=== PATIENT | female | born 1965 | race Caucasian/White ===

== ENCOUNTER 2024-05-15 21:02 | Inpatient (IN) | payer BC, SELFPAY ==
[2024-05-15 14:14] VITALS: BP 187/99
[2024-05-15 14:43] LABS: % Basophils 0.3 % (0-2); % Eosinophils 0.3 % (0-6); % Immature Granulocytes 0.6 % (0-0.5); % Lymphocytes 9.1 % (20.5-51.1); % Monocytes 5.5 % (1.7-9.3); % Neutrophils 84.2 % (42.2-75.2); Absolute Basophils 0.1 10^3/uL (0-0.2); Absolute Immature Granulocytes 0.1 10^3/uL (0-0.05); Absolute Lymphocytes 1.4 10^3/uL (1.2-3.4); Absolute Monocytes 0.9 10^3/uL (0.1-0.6); Absolute Neutrophils 12.9 10^3/uL (1.4-6.5); Hematocrit 40.7 % (37.0-47.0); Hemoglobin 13.8 g/dL (12.0-16.0); Mean Corp Hgb Conc. 33.9 g/dL (33.0-37.0); Mean Corpuscular Volume 79.5 fL (81.0-99.0); Mean Platelet Volume 9.4 fL (7.4-10.4); Nucleated Red Blood Cells % 0 %; Platelet Count 206 10^3/uL (130-400); Red Blood Cell Count 5.12 10^6/uL (4.20-5.40); Red Cell Dist. Width 13.7 % (11.5-14.5); White Blood Cell Count 15.3 10^3/uL (4.8-10.8)
[2024-05-15 14:50] LABS: ALT (SGPT) 36 U/L (0-35); AST (SGOT) 30 U/L (14-36); Albumin 4.4 g/dl (3.5-5.0); Alkaline Phosphatase 136 U/L (38-126); Blood Urea Nitrogen 13 mg/dl (7-17); Calcium 9.9 mg/dl (8.4-10.2); Carbon Dioxide 27 mmol/L (22-30); Chloride 97 mmol/L (98-107); Glucose 239 mg/dl (70-99); Potassium 4.4 mmol/L (3.5-5.1); Sodium 136 mmol/L (135-145); Total Bilirubin 2.9 mg/dl (0.2-1.3); Total Protein 7.6 g/dl (6.3-8.2); eGFR > 60.00
--- NOTE | 2024-05-15 16:33 | EDRN ---
Louie OSUNA in room w/pt at this time.
[2024-05-15 16:45] VITALS: BMI 40.5
--- NOTE | 2024-05-15 16:45 | ED.GENMED ---
History of Present Illness
General
Chief Complaint: Abdominal Pain
Source: patient
Time Seen by Provider: 05/15/24 16:23
History of Present Illness
History of Present Illness:
58yoF with a history of obesity, GERD, IBS, and kidney stones presenting for evaluation of abdominal pain. Symptoms initially started with diarrhea 2 days ago. She then developed pain throughout her lower abdomen. She initially thought her symptoms
may be related to food poisoning as she had takeout prior to her symptoms starting. Her diarrhea has resolved but she continues to have abdominal pain. Pain is worse with movement and improves with ibuprofen. She also reports nausea and belching.
She reports a subjective fever 2 days ago but none since. She denies any vomiting or urinary symptoms. Previous abdominal surgeries include a section x2. She has never had a colonoscopy before.
Phy Exam
General Physical Exam
General Presentation: well appearing and no apparent distress
General age: appears stated age
General Skin: warm and dry
General Habitus: normal
ENT Exam
ENT Exam: normocephalic
Cardiovascular Exam
Cardiovascular Exam: regular rate/rhythm and no murmur
Pulmonary Exam
Pulmonary Exam: lungs clear, no respiratory distress, no crackles and no wheezing
Gastrointestinal Exam
Gastrointestinal Exam: soft, non distended, tender and other (Abdomen obese. +Tenderness throughout lower abdomen. No rebound or guarding.)
Neurological Exam
Neurological Exam: alert
Velasquez Coma Scale
Eye Opening: Spontaneous
Verbal Response: Oriented
Motor Response: Obeys Commands
GCS Total Score: 15
Skin Exam
Skin Exam: normal color and warm/dry
Psychiatric Exam
Psychiatric Exam: normal mood/affect
Course
Orders/Labs/Results
Orders:
Orders
05/15/24 Breakfast
NPO
Allow oral meds: Yes
Allow clear liquids: Sips of Clears
NPO with Ice Chips: Yes
05/15/24 14:24
CMP [Comprehensive Metabolic Panel] Urgent
Complete Blood Count/With Diff Urgent
05/15/24 16:45
CT Abd/pelvis W Iv Cont Urgent
Comment:
Reason For Exam: Lower abd pain
Ketorolac [Toradol] 15 mg IV NOW STA
05/15/24 18:16
CefTRIAXone [Rocephin] 2,000 mg IV NOW STA
MetroNIDAZOLE 500 MG/100 ML [Flagyl 500 mg] 100 ml IV NOW
05/15/24 19:52
Admit/Transfer Patient As Directed
Co-Sign Provider:
Level of Care: Inpatient admission
Assign to:: Medical/Surgical
Physician / Group: Nitin
Diagnosis: Diverticultisis
Reason for Hospitalization: IV abx
Expected length of stay greater than two midnights?: Yes
ELOS- Estimated Length of Stay in days: 3
I certify the patient meets the requirements for IP care: Yes
PRN Pain Medication Management As Directed
May give lesser potent ordered pain med per pt: Yes
preference::
Protocol:: Medication orders for pain may be administered in a
manner that supports deferring to patient preference
when the pt is:
- Requesting an ordered lesser potent pain medication.
Least to most potent pain medications are defined
as: acetaminophen < NSAID < tramadol < opioids
(morphine, oxycodone, hydromorphone).
- Requesting a lesser dose of the same medication IF
ORDERED.
- Requesting a less intrusive route of administration
if both routes are prescribed by the provider (PO <
IV).
05/15/24 19:53
Code Status As Directed
Resuscitation Status: Full Code
05/15/24 21:10
0.9% Sodium Chloride 1000 ml [Nss] 1,000 ml IV 100 mls/hr
Acetaminophen [Tylenol] 650 mg PO Q4HPRN PRN
Albuterol Nebs [Ventolin Nebules] 2.5 mg INH R Q4HPRN PRN
Dextrose 50%-Water [Dextrose 50% Syringe] 12.5 grams IV [id number] PRN
Glucagon [GlucaGen] 1 mg IM PRN PRN
HYDROmorphone [Dilaudid] 0.25 mg IV Q3HPRN PRN
Ketorolac [Toradol] 15 mg IV Q8HPRN PRN
Ondansetron Injectable [Zofran] 4 mg IV Q6HPRN PRN
05/15/24 21:10
ColoRectal Surgery Consult Routine
Consulting Provider: Siddhartha Jane
Was physician already notified: Yes
Activity As Directed
Activity Level: Out of Bed-Early Mobility
With Assistance
Bedside Glucose Monitoring As Directed
Frequency: AC&HS
Additional Instructions:: Change to q6h if pt on TPN, tube feeding or not eating
I&O [Intake/ Output] As Directed
Frequency: q12h
Vital Signs As Directed
Frequency: Per unit guidelines
DX Deep Vein Thrombosis Video Routine
05/15/24 22:00
Piperacillin/Tazo 3.375 Gram [Zosyn] 3.375 gram in 50 ml IV Q6H
05/16/24 06:00
Basic Metabolic Panel IN AM
Complete Blood Count/No Diff IN AM
Glycohemoglobin (HgbA1c) IN AM
LFT [Hcpfy-Ppcq-Mqwulbf] IN AM
05/16/24 07:30
Insulin Aspart Corrective Low [Novolog Flexpen-Low Resistance] See Protocol SC AC
05/16/24 08:00
Famotidine [Pepcid] 20 mg PO DAILY
Pantoprazole [Protonix] 40 mg PO DAILY
05/16/24 18:00
Enoxaparin Sodium [Lovenox] 40 mg SC QPM
Abnormal Lab Results
05/15/24
14:24
WBC 15.3 H 10^3/uL
(4.8-10.8)
MCV 79.5 L fL
(81.0-99.0)
Abs Immat Gran (auto) 0.1 H 10^3/uL
(0-0.05)
Absolute Neuts (auto) 12.9 H 10^3/uL
(1.4-6.5)
Absolute Monos (auto) 0.9 H 10^3/uL
(0.1-0.6)
Immature Gran % 0.6 H %
(0-0.5)
Neutrophils % 84.2 H %
(42.2-75.2)
Lymphocytes % 9.1 L %
(20.5-51.1)
Chloride 97 L mmol/L
(98-107)
Glucose 239 H mg/dl
(70-99)
Total Bilirubin 2.9 H mg/dl
(0.2-1.3)
ALT 36 H U/L
(0-35)
Alkaline Phosphatase 136 H U/L
(38-126)
05/15/24 14:24
05/15/24 14:24
Vital Signs
Initial and Last Documented VS:
Initial Vital Signs
Temp Pulse Resp BP Pulse Ox
98.9 F 114 20 187/99 98
05/15/24 14:14 05/15/24 14:14 05/15/24 14:14 05/15/24 14:14 05/15/24 14:14
Last Documented Vital Signs
Temp Pulse Resp BP Pulse Ox
98.9 F 97 16 156/79 97
05/15/24 14:14 05/15/24 19:04 05/15/24 19:04 05/15/24 19:04 05/15/24 19:04
MDM/Problems Addressed
Differential Diagnosis Includes:
58yoF here with lower abdominal pain x 2 days. Had diarrhea initially which has resolved. HR 114. She is afebrile. She is non-toxic appearing. No signs of peritonitis on abdominal exam. Differential diagnosis includes but is not limited to:
diverticulitis, colitis, appendicitis, gastroenteritis
Initial ED plan: Abdominal labs obtained in triage. White count is elevated at 15. Glucose 239. She denies any prior history of diabetes. Mild transaminitis also noted. Will proceed with CT abdomen. IV Toradol for pain.
*Critical Care Note
Total Time (30-74mins, 75-104mins- exclusive of procedures): Not Applicable
Update Note
Update Note:
CT shows acute diverticulitis with an adjacent fluid collection which is likely a paraovarian cyst but cannot exclude an abscess. IV Rocephin and Flagyl ordered. She was admitted for further management.
ED Attending Note
-
Portions of this chart may have been created with voice recognition software.� Occasional wrong word or��sound alike� substitutions may have occurred due to the inherent limitations of voice recognition software.
Discharge Plan
Departure
Patient Disposition: Admit
Date of Disposition: 05/15/24
Time of Disposition: 18:19
Presentation/result/management discussed w/ accepting MD/DO: Hospitalist
Discharge Problem:
Acute diverticulitis
Interventions
Interventions:
*Risk Screen - Suicide Last Done: 05/15/24 14:14
*General Assessment Last Done: 05/15/24 14:14
*Neglect/Abuse Screening Last Done: 05/15/24 14:14
ED- Fall Risk Assessment Last Done: 05/15/24 16:55
*ED COVID-19 Vaccine History Last Done: 05/15/24 14:14
*Nursing Disposition Last Done: 05/15/24 20:51
BM-Flhsgj-Tsfzklvbtv Assessment Last Done: 05/15/24 16:55
Discharge Date and Time
Discharge Date/Time: 05/15/24 20:52
[2024-05-15 16:55] VITALS: BP 151/86
[2024-05-15] MEDS: TORADOL 15 MG IV ×2 (17:45→21:42)
[2024-05-15 17:47] VITALS: BP 144/77
[2024-05-15] MEDS: ROCEPHIN 2000 MG IV (18:55)
[2024-05-15] MEDS: FLAGYL 500 MG 100 IV (18:56)
[2024-05-15 19:04] VITALS: BP 156/79
--- NOTE | 2024-05-15 19:50 | HPS.HSE ---
Addendum entered and electronically signed by Ruben Taveras DO 05/15/24 20:58:
Patient seen and examined independently. Agree with findings and plan as set forth by Rylie House PA-C.
Patient is a 58y F with PMH significant for asthma and GERD who presents to ED complaining of abdominal pain. Patient states that she developed loose stools about 2 days ago - which has since improved. She then developed lower abdominal
discomfort - bilateral but L > R - which has only progressed since that time. Pain seems to increase after eating / drinking. Subjective fever / sweats.
No prior history of diverticulitis. No prior colonoscopy.
Ass:
Acute Sigmoid Diverticulitis
Sepsis secondary to the above
Pelvic Fluid Collection - Ovarian Cyst v Developing Abscess
Hyperglycemia
Abnormal LFTs
Morbid Obesity
Asthma
GERD / History of PUD
Plan:
Admit for further evaluation and treatment.
IV abx with Zosyn, NPO, IVFs, pain control, etc.
Colorectal Surgery evaluation.
? IR for drainage of fluid collection - if this is felt to represent abscess rather than ovarian cyst?
Follow for clinical improvement.
Follow glucose and check A1C.
Continue PPI.
Original Note:
Family Physician
-
Family Physician: Julian Mccormick, DO
Chief Complaint
-
Abdominal Pain
History of Present Illness
Patient is a 58 y/o female past medical history of asthma, GERD/PUD and irritable bowel syndrome who presents with abdominal pain. Patient reports she initially had some diarrhea two days ago which was associated with some abdominal pain. She
notes diarrhea resolved, but abdominal pain has worsened. She reports she is hungry but when she tried to eat it caused significant worsening of her abdominal pain. She reports subjective fever with sweats/chills two nights ago. CT scan in ED
revealed evidence of diverticulitis. Patient denies prior episodes of diverticulitis, and denies prior colonoscopy.
Medical History
Past Medical History
Past Medical History: Reports Other
Additional Past Medical History:
Asthma
GERD/PUD
Irritable Bowel Syndrome
Nephrolithiasis
Past Surgical History: Reports Other
Additional Past Surgical History:
Section
Lithotripsy with Stent
Social History
Tobacco: Former Smoker (Quit about 20 years ago)
Alcohol: Other (One glass of wine nightly, occasional ellen if they have [place] food)
Family History
Family History: Not pertinent
Allergies / Home Medications
Allergies reflects when Allergies were last updated in [email or web address].
Home Medications with original date entered in [email or web address]
Allergy/Medication List:
Allergies
Allergy/AdvReac Type Severity Reaction Status Date / Time
erythromycin base Allergy Unknown Verified 05/15/24 14:18
Penicillins Allergy Unknown Verified 05/15/24 14:18
Tetracyclines Allergy Unknown Verified 05/15/24 14:18
Home Medications
albuterol sulfate 90 mcg/actuation aerosol inhaler 2 puff inhalation R Q4HPRN PRN sob 05/15/24
cetirizine 10 mg tablet (Zyrtec) 10 mg PO DAILY 05/15/24
cholecalciferol (vitamin D3) 25 mcg (1,000 unit) tablet (Vitamin D3) 25 mcg PO DAILY 05/15/24
cyanocobalamin (vitamin B-12) 1,000 mcg tablet 1,000 mcg PO DAILY 05/15/24
esomeprazole magnesium 20 mg capsule,delayed release (Nexium) 20 mg PO DAILY 05/15/24
famotidine 20 mg tablet (Pepcid) 20 mg PO DAILY 05/15/24
ibuprofen 200 mg tablet (Advil) 600 mg PO Q6HPRN PRN mild pain 05/15/24
magnesium oxide 400 mg PO DAILY 05/15/24
zinc sulfate 50 mg zinc (220 mg) tablet 50 mg PO DAILY 05/15/24
Review of Systems
-
A 12 point ROS was completed and negative except as noted: Yes
Constitutional: Reports Chills
Respiratory: Denies Cough or Trouble Breathing
Cardiac: Denies Chest Pain or Palpitations
Abdomen/GI: Reports See HPI
Physical Exam
Vital Signs
Vital Signs
Temp Pulse Resp BP Pulse Ox
98.9 F 97 16 156/79 97
05/15/24 14:14 05/15/24 19:04 05/15/24 19:04 05/15/24 19:04 05/15/24 19:04
Physical Exam
General: Comfortable and Conversant
HEENT: NormoCephalic, Anicteric, Atraumatic and Other (Mask covering nose and mouth)
Respiratory: Clear and Non Labored Respirations
Cardiac: S1/S2, Regular Rhythm and Tachycardia (Slightly)
GI: Soft, Tender (Bilateral lower quadrants without rebound or guarding) and Distended (Slightly)
Rectal: Deferred by Provider
Musculoskeletal: No Clubbing, No Cyanosis and No Edema
Skin: Warm and Dry
Neuro: Awake, Alert, Oriented and Nonfocal/grossly intact
Psych: Calm
Laboratory Results
-
05/15/24 14:24
05/15/24 14:24
Laboratory Results
Total Bilirubin 2.9 mg/dl (0.2-1.3) H 05/15/24 14:24
AST 30 U/L (14-36) 05/15/24 14:24
ALT 36 U/L (0-35) H 05/15/24 14:24
Alkaline Phosphatase 136 U/L (38-126) H 05/15/24 14:24
Data Reviewed
-
CT Scan: Report Reviewed by me
Lab Data: Labs Reviewed by me
Impression/Plan
-
Sepsis secondary to Acute Diverticulitis with possible abscess
-Consult Colorectal Surgery
-Patient reports she has tolerated Augmentin in the past - Transition to Zosyn
-Continue NPO/IVFs
Hyperglycemia
-Check HgbA1c
-Monitor sugars and continue coverage insulin
Abnormal LFTs
-CT scan with evidence of fatty liver
-Recheck LFTs in AM
Asthma, no acute exacerbation
-Continue albuterol prn
GERD/PUD
-Continue Protonix and Pepcid
Morbid Obesity due to Excess Calories
-Affects all aspects of care
DVT proph: Lovenox
Code Status: Full Code
--- NOTE | 2024-05-15 21:15 | PTCARENOTE ---
Patient arrived to unit via stretcher accompanied by ED PCT. Ambulated self to bed without difficulty, nursing assessment completed and as documented. Oriented to room/facility, instructed use of call dia and within reach, VSS, care ongoing.
[2024-05-15 21:30] VITALS: BP 177/89; BMI 39.8
[2024-05-15] MEDS: ZOSYN 50 IV (21:42)
[2024-05-15] MEDS: ZOFRAN 4 MG IV (21:42)
[2024-05-15] MEDS: NSS 1000 IV (21:42)
[2024-05-15 23:38] VITALS: BP 137/73
[2024-05-16] MEDS: TYLENOL 650 MG PO ×4 (00:38→20:24)
[2024-05-16] MEDS: ZOSYN 50 IV ×4 (04:11→21:48)
[2024-05-16] MEDS: ZOFRAN 4 MG IV ×3 (05:41→21:48)
[2024-05-16] MEDS: TORADOL 15 MG IV ×2 (05:42→20:24)
[2024-05-16 05:52] LABS: Hematocrit 36.4 % (37.0-47.0); Hemoglobin 12.2 g/dL (12.0-16.0); Mean Corp Hgb Conc. 33.5 g/dL (33.0-37.0); Mean Corpuscular Hgb 27.2 pg (27.0-31.0); Mean Corpuscular Volume 81.3 fL (81.0-99.0); Mean Platelet Volume 9.4 fL (7.4-10.4); Platelet Count 191 10^3/uL (130-400); Red Blood Cell Count 4.48 10^6/uL (4.20-5.40); Red Cell Dist. Width 13.8 % (11.5-14.5); White Blood Cell Count 13.3 10^3/uL (4.8-10.8)
[2024-05-16 06:11] LABS: Glucose - Point of Care 195 mg/dl (70-99)
[2024-05-16 06:15] LABS: ALT (SGPT) 27 U/L (0-35); AST (SGOT) 25 U/L (14-36); Albumin 3.6 g/dl (3.5-5.0); Alkaline Phosphatase 122 U/L (38-126); Blood Urea Nitrogen 13 mg/dl (7-17); Calcium 9.2 mg/dl (8.4-10.2); Carbon Dioxide 23 mmol/L (22-30); Chloride 101 mmol/L (98-107); Direct Bilirubin 1.3 mg/dl (0.0-0.4); Estimated Creatinine Clearance 94 ml/min; Glucose 171 mg/dl (70-99); Potassium 3.8 mmol/L (3.5-5.1); Sodium 139 mmol/L (135-145); Total Bilirubin 2.2 mg/dl (0.2-1.3); Total Protein 6.5 g/dl (6.3-8.2); eGFR > 60.00
--- NOTE | 2024-05-16 07:36 | W.PN.HOSP.TC ---
Today's Communication/Plan
-
diet as per CRS
cont abx
pain nausea headache control
Glycemic control
Assessment / Plan
Assessment / Plan
Physical Exam
General: Comfortable and Conversant
HEENT: NormoCephalic, Anicteric, Atraumatic
Respiratory: Clear and Non Labored Respirations
Cardiac: S1/S2, Regular Rhythm and Tachycardia
GI: Soft, Tender Bilateral lower quadrants without rebound or guarding and distended vs body habitus obesity
Musculoskeletal: No Clubbing, No Cyanosis and No Edema
Skin: Warm and Dry
Neuro: Awake, Alert, Oriented and Nonfocal/grossly intact
Psych: Calm
Patient is a 58 y/o female past medical history of asthma, GERD/PUD and irritable bowel syndrome who presents with abdominal pain. Patient reports she initially had some diarrhea two days ago which was associated with some abdominal pain. She
notes diarrhea resolved, but abdominal pain has worsened. She reports she is hungry but when she tried to eat it caused significant worsening of her abdominal pain. She reports subjective fever with sweats/chills two nights ago. CT scan in ED
revealed evidence of diverticulitis. Patient denies prior episodes of diverticulitis, and denies prior colonoscopy.
Sepsis secondary to Acute Diverticulitis with possible abscess
-Consult Colorectal Surgery appreciated diet advanced to clear liquid no acute surgical intervention indicated at this time
-cont IV abx zosyn
Hyperglycemia
Diabetes
-HgbA1c 8.6
-sliding scale
-Diabetes education requested
Abnormal LFTs
-CT scan with evidence of fatty liver
-Mild LFT elevations resolved
Asthma, no acute exacerbation
-Continue albuterol prn
GERD/PUD
-Continue Protonix and Pepcid
Morbid Obesity due to Excess Calories
-Affects all aspects of care
DVT proph: Lovenox
Code Status: Full Code
I spent a total of 50 minutes with the patient or on the floor. More than 50% of this time involved counseling and coordination of care.
Anticipated Discharge: 24 - 48 hours
Subjective/Interval History
-
Date of Service: May 16, 2024
Seen and examined at bedside in no acute distress siting up comfortably in bed. Reports nausea headache and abd pain left sided radiating to right. Patient also reports transient right groin pain. Denies Post-menopause bleeding/spotting
Objective Data
-
Labs:
Laboratory Results
05/16/24
05:17
WBC 13.3 H
Hgb 12.2
Hct 36.4 L
Plt Count 191
Sodium 139
Potassium 3.8
Chloride 101
Carbon Dioxide 23
BUN 13
Creatinine 0.7
Glucose 171 H
Calcium 9.2
Total Bilirubin 2.2 H
AST 25
ALT 27
Alkaline Phosphatase 122
Vital Signs:
Vital Signs
Temp Pulse Resp BP Pulse Ox
99.5 F 103 20 137/73 97
05/15/24 23:38 05/15/24 23:38 05/15/24 23:38 05/15/24 23:38 05/16/24 02:35
[2024-05-16 08:02] VITALS: BP 138/68
[2024-05-16] MEDS: PROTONIX 40 MG PO (08:13)
[2024-05-16] MEDS: PEPCID PO ×2 (08:13→08:17)
[2024-05-16] MEDS: NOVOLOG FLEXPEN-LOW RESISTANCE SC (08:14)
[2024-05-16] MEDS: NSS 1000 IV (08:49)
[2024-05-16 10:00] LABS: Glycohemoglobin (HgbA1c) 8.6 % (4.0-5.6)
[2024-05-16 11:22] LABS: Glucose - Point of Care 170 mg/dl (70-99)
--- NOTE | 2024-05-16 11:59 | CON.CRS ---
Consultation
-
Date/Time Consultation Requested: 05/15/242109
Requesting Provider: Harsh
Medical History
-
Chief Complaint: abdominal pain
History of Present Illness:
Ms Campo is a 58 yo female with a history of IBS (last colonoscopy >30 years ago), peptic and duodenal ulcers, x2 and prior anal sphincterotomy for a fissure who presents through the ED with ongoing abdominal pain over the past 3 days.
She notes acute onset on Saturday with sharp pains in her lower abdomen associated with diarrhea and nausea. She ate very little that day into the next. On evening, she attempted to reintroduce solid foods but developed worsening pain
about 2 hours later. As her pain persisted, she presented through the ED for evaluation. She denies vomiting but notes that she still has persistent nausea. Pain is improved with analgesics, but still present. She notes some discomfort in the
abdomen when she pushes to void or pass stool. No further diarrhea today. She denies hematochezia.
Past Medical History
Past Medical History: Other (IBS, PUD, Nephrolithiasis, anal fissure, asthma)
Past Surgical History: (x2), Urological (Ureteroscopy for stones) and Other (Anal sphincterotomy 40 years ago for fissure)
Social History
Tobacco: Former Smoker (quit 18 years ago)
Alcohol: Daily (1-2 glasses of wine)
Family History
Family History: Reviewed & Not Pertinent
Allergies / Home Medications
Allergy/AdvReac Type Severity Reaction Status Date / Time
erythromycin base Allergy Unknown Verified 05/15/24 14:18
Penicillins Allergy Unknown Verified 05/15/24 14:18
Tetracyclines Allergy Unknown Verified 05/15/24 14:18
�Medication �Instructions �Recorded �Confirmed �Type
albuterol sulfate 90 mcg/actuation 2 puff inhalation R Q4HPRN PRN sob 05/15/24 05/15/24 History
aerosol inhaler
cetirizine 10 mg tablet (Zyrtec) 10 mg PO DAILY Allergies 05/15/24 05/15/24 History
cholecalciferol (vitamin D3) 25 25 mcg PO DAILY Supplement 05/15/24 05/15/24 History
mcg (1,000 unit) tablet (Vitamin
D3)
cyanocobalamin (vitamin B-12) 1,000 mcg PO DAILY Supplement 05/15/24 05/15/24 History
1,000 mcg tablet
esomeprazole magnesium 20 mg 20 mg PO DAILY Gastrointestinal 05/15/24 05/15/24 History
capsule,delayed release (Nexium) Issue
famotidine 20 mg tablet (Pepcid) 20 mg PO DAILY Fluid 05/15/24 05/15/24 History
Retention/Swelling
ibuprofen 200 mg tablet (Advil) 600 mg PO Q6HPRN PRN mild pain 05/15/24 05/15/24 History
magnesium oxide 400 mg PO DAILY Supplement 05/15/24 05/15/24 History
zinc sulfate 50 mg zinc (220 mg) 50 mg PO DAILY Supplement 05/15/24 05/15/24 History
tablet
Review of Systems
-
History Source: Patient
All other systems: Negative unless noted
A 10 point review of systems was completed, and was negative except as per HPI.
Physical Exam
Vital Signs
Temp 99.6 F 05/16/24 08:02
Pulse 94 05/16/24 08:02
Resp Rate 16 05/16/24 08:02
Blood pressure 138/68 05/16/24 08:02
SaO2 94 05/16/24 08:02
05/15/24 05/16/24 05/17/24
06:59 06:59 06:59
Actual Weight 98.656 kg
Body Mass Index (BMI) 39.8
Lab Results / Allergies
05/16/24 05:17
05/16/24 05:17
WBC 13.3 10^3/uL (4.8-10.8) H 05/16/24 05:17
Hgb 12.2 g/dL (12.0-16.0) 05/16/24 05:17
Hct 36.4 % (37.0-47.0) L 05/16/24 05:17
Plt Count 191 10^3/uL (130-400) 05/16/24 05:17
Abs Immat Gran (auto) 0.1 10^3/uL (0-0.05) H 05/15/24 14:24
Neutrophils % 84.2 % (42.2-75.2) H 05/15/24 14:24
Allergy/AdvReac Type Severity Reaction Status Date / Time
erythromycin base Allergy Unknown Verified 05/15/24 14:18
Penicillins Allergy Unknown Verified 05/15/24 14:18
Tetracyclines Allergy Unknown Verified 05/15/24 14:18
Physical Exam
General: Well Developed and Well Nourished
HEENT: Moist Mucous Membranes
Respiratory: Non Labored Respirations
GI: Soft, Tender (generalized r>l and mostly lower) and Distended (mild)
Skin: Warm and Dry
Neuro: Awake, Alert and AO x 3
Psych: Calm
Data Reviewed
-
CT Scan: Image Personally Visualized and interpreted, Report Reviewed by me, Discussed with Physician and Discussed with Patient
Ultrasound: Image Personally Visualized and interpreted, Report Reviewed by me, Discussed with Physician and Discussed with Patient
Labs: Labs Reviewed by me, Discussed with Physician and Discussed with Patient
Assessment / Plan
-
58 yo female presenting with abdominal pain, diarrhea and nausea. No prior episodes of diverticulitis and no recent colonoscopy. Mildly tachycardic intermittently, but afebrile with stable BP's. Leukocytosis present with WBC of 15.3 now trended down
to 13.[address] imaging reviewed and consistent with diverticulitis of the sigmoid colon with focal fluid collection along the mesenteric border of the mid sigmoid colon which is likely secondary to acute infection vs ovarian cyst. LFT's
elevated in the setting of daily ETOH and hepatic steatosis. ABD US without gallbladder pathology. Hyperglycemia present with elevated a1c of 8.6.
--No plans for emergent surgery or drain placement at this time; will follow closely for improvement on abx with supportive measures
--Ok for clear liquids
--Continue IV ABX
--Antiemetics/analgesics prn
--Follow labs
--Medical management as per primary team
[2024-05-16 15:01] VITALS: BP 149/82
--- NOTE | 2024-05-16 15:09 | CON.GI ---
Medical History
Chief Complaint / HPI
Chief Complaint: Abdominal pain
History of Present Illness:
Shyla is a 58-year-old obese female with history of IBS with last colonoscopy decades ago, subjective gastric and duodenal ulcers also subjective with prior anal sphincterotomy for fissure who came to the emergency room on 05/15/2024 with ongoing
abdominal pain that was more pelvic in nature for roughly 3 days with loose stools and nausea with worsening discomfort when she tries to have a bowel movement or void. Denies any blood in her stools. No prior episodes of diverticulitis. We have
no prior workup on her as she is never been to [facility]. She states her stools are intermittently loose and she will take an Imodium about twice a week. She denies any constipation. On Saturday she had acute onset sharp pains in her
lower abdomen associated with looser stools and nausea. She decreased her oral intake and on had worsening pain after trying to eat solids. Pain persisted so she came to the emergency room. No vomiting but does have nausea.
She was seen by colorectal surgery because of concern for questionable abscess around the sigmoid area however it may actually be ovarian in nature. She is in for pelvic ultrasound today. Colorectal surgery consulted us because of her elevated
bilirubin.
Patient states she has never had an elevated bilirubin. We do not have labs here but I did review her [facility] labs as an outpatient from December 20, 2023. Total bilirubin was 0.6, alkaline phosphatase 121, AST 44, ALT 31.
On admission on 05/15/2024 total bilirubin 2.9, ALT 36, AST 30, alkaline phosphatase 136 prior to antibiotics
05/16/2024, total bilirubin 2.2, direct bilirubin 1.3, AST 25, ALT 27, alkaline phosphatase 122
05/17/2024, total bilirubin 3.1, direct bili lower than 1.8, AST 32, ALT 29, alkaline phosphatase 169
CT scan initially done on 05/15/2024 shows a normal liver, spleen, gallbladder, pancreas other than fatty infiltration. Liver is borderline enlarged at 19 cm, spleen is also borderline at 13 cm. There is no significant lymphadenopathy. I did
review with the radiologist since the ultrasound that was done a day later on 05/16/2024 question about a 1.2 cm adjacent to the gallbladder cyst. On further review of the CT scan the radiologist states it may just be gallbladder folds along the
gallbladder fundus and not a true liver cyst.
Ultrasound on 05/16/2024 showed a normal-appearing gallbladder with no ductal dilatation with a normal common bile duct of 4 mm. Liver length is 17.8, increased echogenicity consistent with fatty liver disease, 1.2 cm cyst adjacent to the
gallbladder. Spleen 12.5 cm, normal pancreas. Upper abdominal IVC are normal.
No culture data, No fever with top temperature of 99.9
She is normotensive
From a GI standpoint she states she has chronic IBS with intermittent loose stools requiring Imodium. Does take occasional Advil as needed for pain. On B12 magnesium and zinc but states no objective B12 deficiency. Also vitamin D3. She does take
Pepcid and Nexium on a daily basis to control her chronic reflux. She denies any dysphagia. Does not normally have chronic nausea but is nauseous here. And has been since the diverticulitis started.
Past Medical History
Past Medical History: Other (Obesity, hypertension, prior anal fissure, IBS with diarrhea, asthma)
Past Surgical History: Other (Anal fissure vitamin D 40 years ago, x 2, ureteroscopy for stones)
Social History
Tobacco: Former Smoker (Quit 18 years ago)
Alcohol: Daily (1 to 2 glasses of wine daily)
Personal:
Living: With Family
Employment: Employed
Family History
Family History: Other (Patient denies any known liver disease)
Allergies / Home Medications
Allergy/AdvReac Type Severity Reaction Status Date / Time
erythromycin base Allergy Unknown Verified 05/15/24 14:18
Penicillins Allergy Unknown Verified 05/15/24 14:18
Tetracyclines Allergy Unknown Verified 05/15/24 14:18
�Medication �Instructions �Recorded
albuterol sulfate 90 mcg/actuation 2 puff inhalation R Q4HPRN PRN sob 05/15/24
aerosol inhaler
cetirizine 10 mg tablet (Zyrtec) 10 mg PO DAILY Allergies 05/15/24
cholecalciferol (vitamin D3) 25 25 mcg PO DAILY Supplement 05/15/24
mcg (1,000 unit) tablet (Vitamin
D3)
cyanocobalamin (vitamin B-12) 1,000 mcg PO DAILY Supplement 05/15/24
1,000 mcg tablet
esomeprazole magnesium 20 mg 20 mg PO DAILY Gastrointestinal 05/15/24
capsule,delayed release (Nexium) Issue
famotidine 20 mg tablet (Pepcid) 20 mg PO DAILY Fluid 05/15/24
Retention/Swelling
ibuprofen 200 mg tablet (Advil) 600 mg PO Q6HPRN PRN mild pain 05/15/24
magnesium oxide 400 mg PO DAILY Supplement 05/15/24
zinc sulfate 50 mg zinc (220 mg) 50 mg PO DAILY Supplement 05/15/24
tablet
Review of Systems
-
All other systems: A 12 pt ROS was Negative except as stated above in HPI
Vital Signs
Temp Pulse Resp BP Pulse Ox
99.1 F 100 16 149/82 96
05/16/24 15:01 05/16/24 15:01 05/16/24 15:01 05/16/24 15:01 05/16/24 15:01
Physical Exam
Exam
General: Other (Obese female who feels currently nauseated)
HEENT: Anicteric
Respiratory: Clear
Cardiac: Murmur (Very slight murmur)
GI: Other (Obese, distended abdomen but patient states this is her baseline-tender in the epigastric right upper quadrant and pelvic area)
Neuro: AO x 3
Psych: Calm
Results
WBC 13.3 10^3/uL (4.8-10.8) H 05/16/24 05:17
Hgb 12.2 g/dL (12.0-16.0) 05/16/24 05:17
Hct 36.4 % (37.0-47.0) L 05/16/24 05:17
MCV 81.3 fL (81.0-99.0) 05/16/24 05:17
Plt Count 191 10^3/uL (130-400) 05/16/24 05:17
Absolute Neuts (auto) 12.9 10^3/uL (1.4-6.5) H 05/15/24 14:24
Sodium 139 mmol/L (135-145) 05/16/24 05:17
Potassium 3.8 mmol/L (3.5-5.1) 05/16/24 05:17
Chloride 101 mmol/L (98-107) 05/16/24 05:17
Carbon Dioxide 23 mmol/L (22-30) 05/16/24 05:17
BUN 13 mg/dl (7-17) 05/16/24 05:17
Creatinine 0.7 mg/dL (0.6-1.0) 05/16/24 05:17
Calcium 9.2 mg/dl (8.4-10.2) 05/16/24 05:17
Total Bilirubin 2.2 mg/dl (0.2-1.3) H 05/16/24 05:17
AST 25 U/L (14-36) 05/16/24 05:17
ALT 27 U/L (0-35) 05/16/24 05:17
Alkaline Phosphatase 122 U/L (38-126) 05/16/24 05:17
Diagnostic Image Results:
Ultrasound, 05/16/2024 for elevated bilirubin. Normal gallbladder with no evidence of ductal dilatation with normal common bile duct of 4 mm. Liver 17.8 cm, increased echogenicity. 1.2 cm cyst adjacent to the gallbladder, normal spleen and
pancreas.
CT scan 05/15/2024 with IV contrast. Small 2 mm solid noncalcified pleural-based pulmonary nodule, mild degenerative bone disease, liver, spleen, gallbladder and pancreas are unremarkable aside from hepatic fatty infiltration. No significant
lymphadenopathy. Normal bowel loops. Moderate diverticulosis, moderate pericolonic stranding about the distal sigmoid colon consistent with acute diverticulitis with no free air. Focal adjacent fluid collection more likely a cyst and less likely
a developing abscess
Prior GI Procedures: Patient states she had GI procedures about 20 years ago at [facility]
EGD:
Colonoscopy:
Assessment / Plan
-
Shyla is a 58-year-old obese female with history of IBS with last colonoscopy decades ago, subjective gastric and duodenal ulcers and relatively well-controlled heartburn on PPI and H2 belem daily, also subjective with prior anal sphincterotomy
for fissure who came to the emergency room on 05/15/2024 with ongoing abdominal pain that was more pelvic in nature for roughly 3 days with loose stools and nausea with worsening discomfort when she tries to have a bowel movement or void found to
have sigmoid diverticulitis for the first time on imaging as well as an elevated direct bilirubin and mildly elevated alkaline phosphatase.
# Elevated total bilirubin alkaline phosphatase in the setting of diverticulitis
-- Ultrasound on 05/15/2024 showed no ductal dilatation with normal, bile duct of 4 mm. Increased echogenicity, 1.2 cm cyst adjacent to the gallbladder, normal-sized spleen and pancreas.
-- Total bilirubin today 3.1, direct is 1.8 also elevated, alkaline phosphatase 169, ALT 29, AST 32
--No coagulation studies to review. Will check in the morning
-- discussed with radiologist regarding the ultrasound read showing a 1.2 cm cyst adjacent to the gallbladder but no evidence of choledocholithiasis or acute cholecystitis. The CT scan done on 05/15/[address] Amato who read the
ultrasound states the 1.2 cm cyst is more likely a Phrygian gap/GB fol along the gallbladder fundus and not actually a true liver cyst.
--Etiology of conjugated hyperbilirubinemia can be due to sepsis or ischemia, medication, PSC, PBC, MORENO
--Fortunately the patient was able to show me prior liver enzymes from November 2023 showed a normal total bilirubin of 0.6, normal alkaline phosphatase of 121, ALT of 31, AST of 44, her platelet counts have always been normal above 150.
-- In the setting of her current infection this may all be related to that
-- Patient is going for a transvaginal ultrasound today to look further at the findings from CT scan to see if this is ovarian in nature
--If her bilirubin continues to climb we will order an MRI/MRCP especially in the setting of some epigastric and right upper quadrant discomfort on palpation and nausea
-- Ultrasound can be lower yield in obese patients
# First episode of sigmoid diverticulitis -leukocytosis is improving on antibiotics. She is on a low residue diet
Patient will need a colonoscopy outpatient
Data Reviewed
-
CT Scan: Image Personally Visualized and interpreted and Report Reviewed by me
Ultrasound: Image Personally Visualized and interpreted and Report Reviewed by me
-
-
Thank you for consultation and allowing me to participate in the patient's care. Please call the distribution district supervisor GI physician during the after hours with any questions or concerns.
[2024-05-16] MEDS: PEPCID 20 MG PO (15:20)
[2024-05-16] MEDS: NOVOLOG FLEXPEN-LOW RESISTANCE 1 UNITS SC (15:21)
[2024-05-16 18:07] LABS: Glucose - Point of Care 260 mg/dl (70-99)
[2024-05-16] MEDS: NOVOLOG FLEXPEN-LOW RESISTANCE 3 UNITS SC (18:17)
[2024-05-16] MEDS: LOVENOX 40 MG SC (18:17)
[2024-05-16] MEDS: NSS IV (19:11)
[2024-05-16 22:11] LABS: Glucose - Point of Care 126 mg/dl (70-99)
[2024-05-16 23:39] VITALS: BP 121/66
[2024-05-17] MEDS: TYLENOL 650 MG PO ×4 (00:37→22:07)
[2024-05-17] MEDS: ZOSYN 50 IV ×4 (04:47→21:53)
[2024-05-17] MEDS: ZOFRAN 4 MG IV ×3 (04:50→21:56)
[2024-05-17] MEDS: COMPAZINE 5 MG IV ×2 (06:08→16:11)
[2024-05-17 06:44] LABS: Hematocrit 35.6 % (37.0-47.0); Hemoglobin 11.8 g/dL (12.0-16.0); Mean Corp Hgb Conc. 33.1 g/dL (33.0-37.0); Mean Corpuscular Hgb 26.9 pg (27.0-31.0); Mean Corpuscular Volume 81.3 fL (81.0-99.0); Mean Platelet Volume 9.8 fL (7.4-10.4); Platelet Count 217 10^3/uL (130-400); Red Blood Cell Count 4.38 10^6/uL (4.20-5.40); Red Cell Dist. Width 13.8 % (11.5-14.5); White Blood Cell Count 11.2 10^3/uL (4.8-10.8)
--- NOTE | 2024-05-17 07:02 | W.PN.HOSP.TC ---
Today's Communication/Plan
-
Pain nausea control
diet as per CRS
cont abx
monitor LFTs Bili
Assessment / Plan
Assessment / Plan
Physical Exam
General: Comfortable and Conversant obese
HEENT: NormoCephalic, Anicteric, Atraumatic
Respiratory: Clear and Non Labored Respirations
Cardiac: S1/S2, Regular Rhythm and Tachycardia
GI: Soft, Tender Bilateral lower quadrants without rebound or guarding and distended vs body habitus obesity
Musculoskeletal: No Clubbing, No Cyanosis and No Edema
Skin: Warm and Dry
Neuro: Awake, Alert, Oriented and Nonfocal/grossly intact
Psych: Calm
Patient is a 58 y/o female past medical history of asthma, GERD/PUD and irritable bowel syndrome who presents with abdominal pain. Patient reports she initially had some diarrhea two days ago which was associated with some abdominal pain. She
notes diarrhea resolved, but abdominal pain has worsened. She reports she is hungry but when she tried to eat it caused significant worsening of her abdominal pain. She reports subjective fever with sweats/chills two nights ago. CT scan in ED
revealed evidence of diverticulitis. Patient denies prior episodes of diverticulitis, and denies prior colonoscopy.
Sepsis secondary to Acute Diverticulitis with possible abscess
-Consult Colorectal Surgery appreciated diet gradually advanced to low residue no acute surgical intervention indicated at this time
-cont IV abx zosyn
-persistent nausea requiring prn zofran and compazine (EKG checked QTC wnl)
CT abd/pelvis appreciated
-Moderate acute diverticulitis of the mid and distal sigmoid colon with a focal adjacent fluid collection probably a paraovarian cyst versus less likely developing abscess.
-Probable uterine fibroid
-Mild hepatosplenomegaly.
-Hepatic fatty infiltration.
-2 mm right middle lobe pulmonary nodule.
Abd US appreciated
-Hepatic steatosis with a 1.2 cm cyst adjacent to the gallbladder.
-No sonographic evidence of acute cholecystitis or choledocholithiasis.
Transvaginal Pelvic US checked to evaluate possible paraovarian cyst vs abscess as noted CT above. Noted:
1. Thickened endometrium for age. Differential includes endometrial hyperplasia, polyp and carcinoma. (CRS discussed finding with [facility] who recommended outpt follow up 1-2 wks)
2. No fluid collection identified.
3. Nonvisualization of the left ovary.
Bilirubin elevation
GI eval appreciated considering MRCP if bili continues to rise, pt will need outpt colonoscopy
Hyperglycemia
Diabetes
-HgbA1c 8.6
-sliding scale
-Diabetes education requested
Abnormal LFTs
-CT scan with evidence of fatty liver
-Mild LFT elevations resolved, Bili rising as above
Asthma, no acute exacerbation
-Continue albuterol prn
GERD/PUD
-Continue Protonix and Pepcid
Morbid Obesity due to Excess Calories
-Affects all aspects of care
DVT proph: Lovenox
Code Status: Full Code
I spent a total of 50 minutes with the patient or on the floor. More than 50% of this time involved counseling and coordination of care.
Anticipated Discharge: 24 - 48 hours
Subjective/Interval History
-
Date of Service: May 17, 2024
Tolerating low residue diet. Pain improved. Intermittent nausea persists.
Objective Data
-
Labs:
Laboratory Results
05/17/24
05:56
WBC 11.2 H
Hgb 11.8 L
Hct 35.6 L
Plt Count 217
Sodium Pending
Potassium Pending
Chloride Pending
Carbon Dioxide Pending
BUN Pending
Creatinine Pending
Glucose Pending
Calcium Pending
Total Bilirubin Pending
AST Pending
ALT Pending
Alkaline Phosphatase Pending
Vital Signs:
Vital Signs
Temp Pulse Resp BP Pulse Ox
98.9 F 91 18 121/66 96
05/16/24 23:39 05/16/24 23:39 05/16/24 23:39 05/16/24 23:39 05/17/24 00:22
I&O
05/16/24 05/17/24 05/18/24
06:59 06:59 06:59
Intake Total 420 / 420
Balance 420 / 420
[2024-05-17 07:19] LABS: ALT (SGPT) 29 U/L (0-35); AST (SGOT) 32 U/L (14-36); Albumin 3.6 g/dl (3.5-5.0); Alkaline Phosphatase 169 U/L (38-126); Blood Urea Nitrogen 12 mg/dl (7-17); Calcium 8.6 mg/dl (8.4-10.2); Carbon Dioxide 26 mmol/L (22-30); Chloride 101 mmol/L (98-107); Estimated Creatinine Clearance 94 ml/min; Glucose 163 mg/dl (70-99); Magnesium 1.8 mg/dl (1.6-2.3); Phosphorus 3.2 mg/dl (2.5-4.5); Potassium 3.8 mmol/L (3.5-5.1); Sodium 138 mmol/L (135-145); Total Bilirubin 3.1 mg/dl (0.2-1.3); Total Protein 6.4 g/dl (6.3-8.2); eGFR > 60.00
[2024-05-17 07:48] VITALS: BP 128/65
[2024-05-17 08:09] LABS: Glucose - Point of Care 167 mg/dl (70-99)
[2024-05-17] MEDS: PROTONIX 40 MG PO (08:17)
[2024-05-17] MEDS: NOVOLOG FLEXPEN-LOW RESISTANCE 1 UNITS SC (08:17)
[2024-05-17] MEDS: PEPCID 20 MG PO (08:17)
[2024-05-17 08:32] LABS: Direct Bilirubin 1.8 mg/dl (0.0-0.4)
[2024-05-17 11:41] LABS: Glucose - Point of Care 247 mg/dl (70-99)
[2024-05-17] MEDS: NOVOLOG FLEXPEN-LOW RESISTANCE 2 UNITS SC (13:18)
--- NOTE | 2024-05-17 13:48 | W.PN.CRS1 ---
Addendum entered and electronically signed by Juan Bartholomew MD 05/17/24 15:00:
I saw and examined the patient.
The AUTOMATIC SHIRRING MACHINE OPERATOR's note was reviewed and I agree with the note.
Comment:
58-year-old female with PMH of IBS, PUD/GERD, asthma, anal fissure s/p sphincterotomy who presents with 3 days of abdominal pain. Initially, she had the abdominal pain with 3-4 episodes of diarrhea. The pain started to improve and the diarrhea
resolved. However, on the third day, the pain persisted. She had some nausea but no vomiting. She had dysuria, but denies chest pain or shortness of breath. In the ED, her WBC was 15.3, T. bili 2.2, direct bili 1.[address] scan showed pulmonary
nodule and diverticulitis with focal fluid collection that is more likely to be paraovarian cyst versus diverticular abscess, no free air. RUQ ultrasound showed no evidence of choledocholithiasis
AFVSS, normotensive; ABD soft, nondistended, mildly to moderately tender in the right mid abdomen to the left lower quadrant, no rebound or guarding
WBC 11.2 from 13.3, T. bili 3.1 from 2.2, direct bili 1.8 from 1.3, LFTs normal
�Diverticulitis; no acute surgical intervention currently indicated; continue nonop measures with bowel rest and IV antibiotics
�Reviewed the CT and personally interpreted; agree that fluid collection appears more likely ovarian in nature
�Transvaginal ultrasound unable to visualize left ovary, endometrial strip thicker than average for age; discussed with on�call DATA LEAD, who recommended outpatient follow-up with her DATA LEAD within 1 to 2 weeks
� Elevated total and direct bilirubinemia, no evidence of biliary dilation on U/S
-Appreciate GI; continue to trend LFTs; if continuing to rise, will need MRCP
�Okay for low residue
� Continue IV antibiotics
� Appreciate hospitalist
Dispo�if successful with nonoperative measures, follow-up outpatient for repeat colonoscopy and risk/benefit discussion regarding treatment options for diverticulitis
Original Note:
Today's Communication / Plan
-
Advance diet as tolerated
Assessment/Plan
-
58 yo female presenting with sigmoid diverticulitis with focal fluid collection along the mesenteric border of the mid sigmoid colon (?ovarian) on CT imaging. Leukocytosis present on admission and now trending down, LFT's trending up. US of
gallbladder without stones/cholecystitis. Trans-vaginal US in follow up of pelvic fluid seen on CT; unfortunately the left ovary was not visualized, no fluid collection seen on US. Thickened endometrial stripe present. AFVSS. Nausea persists but
pain improved and passing stool/flatus.
--Low residue diet as tolerated
--Appreciate gastroenterology following
--Discussed transvaginal results with instructional technology facilitator LACEWORKER and given absence of vaginal bleeding, can follow as an OP for further diagnostic work up
--Continue ABX
--Will continue to follow with nonoperative measures given clinical improvement
--Will need OP colonoscopy
Subjective Data
Subjective Data
Date of Service: May 17, 2024
Patient seen and examined at bedside with Dr. Bartholomew. Pain to lower abdomen much improved although nausea persists. Passing flatus and had a loose stool today.
Objective Data
-
Vital Signs
Temp Pulse Resp BP Pulse Ox
99.5 F 94 17 128/65 95
05/17/24 07:48 05/17/24 07:48 05/17/24 07:48 05/17/24 07:48 05/17/24 07:48
Intake & Output
05/16/24 05/17/24 05/18/24
06:59 06:59 06:59
Intake Total 420 / 420
Balance 420 / 420
Intake:
Oral fluids 420 / 420
Other:
Number of approximated MODERATE 2 3
amounts of urine
Lab Results
05/17/24 05:56
05/17/24 05:56
Physical Exam
-
General: No Acute Distress
Abdomen: Soft, Non Distended, Tender (mild to LLQ) and No Guarding
Skin: Warm and Dry
Data Reviewed
-
Ultrasound: Image Reviewed (Thickened endometrial stripe, left ovary and fluid collection not visualized)
[2024-05-17 15:06] VITALS: BP 148/71
[2024-05-17 16:30] LABS: Glucose - Point of Care 310 mg/dl (70-99)
[2024-05-17] MEDS: NOVOLOG FLEXPEN-LOW RESISTANCE 4 UNITS SC (17:29)
[2024-05-17] MEDS: LOVENOX SC (17:30)
[2024-05-17 21:49] LABS: Glucose - Point of Care 233 mg/dl (70-99)
[2024-05-17 23:45] VITALS: BP 164/70
[2024-05-18 01:08] VITALS: BP 144/72
[2024-05-18] MEDS: ZOSYN 50 IV ×4 (03:57→21:29)
[2024-05-18] MEDS: ZOFRAN 4 MG IV ×3 (03:57→16:17)
[2024-05-18] MEDS: TORADOL 15 MG IV ×2 (04:51→17:42)
[2024-05-18 07:09] LABS: Hematocrit 34.5 % (37.0-47.0); Hemoglobin 11.6 g/dL (12.0-16.0); Mean Corp Hgb Conc. 33.6 g/dL (33.0-37.0); Mean Corpuscular Hgb 27.5 pg (27.0-31.0); Mean Corpuscular Volume 81.8 fL (81.0-99.0); Platelet Count 220 10^3/uL (130-400); Red Blood Cell Count 4.22 10^6/uL (4.20-5.40); Red Cell Dist. Width 13.6 % (11.5-14.5); White Blood Cell Count 9.1 10^3/uL (4.8-10.8)
[2024-05-18 07:15] VITALS: BP 146/74
[2024-05-18 07:21] LABS: INR 1.08; PT 14.3 Sec (11.4-14.6)
[2024-05-18 07:32] LABS: ALT (SGPT) 39 U/L (0-35); AST (SGOT) 46 U/L (14-36); Albumin 3.5 g/dl (3.5-5.0); Alkaline Phosphatase 204 U/L (38-126); Blood Urea Nitrogen 8 mg/dl (7-17); Calcium 8.7 mg/dl (8.4-10.2); Carbon Dioxide 26 mmol/L (22-30); Chloride 100 mmol/L (98-107); Estimated Creatinine Clearance 109 ml/min; Glucose 248 mg/dl (70-99); Magnesium 1.8 mg/dl (1.6-2.3); Phosphorus 2.8 mg/dl (2.5-4.5); Potassium 3.4 mmol/L (3.5-5.1); Sodium 139 mmol/L (135-145); Total Bilirubin 1.9 mg/dl (0.2-1.3); Total Protein 6.5 g/dl (6.3-8.2); eGFR > 60.00
[2024-05-18 08:39] LABS: Glucose - Point of Care 298 mg/dl (70-99)
[2024-05-18] MEDS: PROTONIX 40 MG PO (08:57)
[2024-05-18] MEDS: PEPCID 20 MG PO (08:57)
[2024-05-18] MEDS: NOVOLOG FLEXPEN-LOW RESISTANCE 3 UNITS SC (08:58)
[2024-05-18 09:23] LABS: Direct Bilirubin 1.1 mg/dl (0.0-0.4)
[2024-05-18] MEDS: OMNIPAQUE 50 ML PO (11:16)
--- NOTE | 2024-05-18 12:14 | W.PN.CRS1 ---
Today's Communication / Plan
-
CT abdomen and pelvis
C. difficile
Simethicone
Assessment/Plan
-
58 yo female presenting with sigmoid diverticulitis with focal fluid collection along the mesenteric border of the mid sigmoid colon (?ovarian) on CT imaging. Leukocytosis present on admission and now trending down, LFT's trending up. US of
gallbladder without stones/cholecystitis. Trans-vaginal US in follow up of pelvic fluid seen on CT; unfortunately the left ovary was not visualized, no fluid collection seen on US. Thickened endometrial stripe present. AFVSS. Nausea persists but
pain improved and passing stool/flatus.
--Remain n.p.o. for now
--Given nausea and bloating, CT abdomen pelvis ordered
--C. difficile given loose stools
--Appreciate gastroenterology following
--Discussed transvaginal results with millinery salesperson CREAM DUMPER and given absence of vaginal bleeding, can follow as an OP for further diagnostic work up
--Continue ABX
--Add simethicone
--Will need OP colonoscopy
Subjective Data
Subjective Data
Date of Service: May 18, 2024
Patient states she had a bad night. She states she feels bloated overnight and is nauseous. She has lower abdominal pain. She had 5 loose stools. She states she think she may have vomited but describes it more like spitting up.
Objective Data
-
Vital Signs
Temp Pulse Resp BP Pulse Ox
100.4 F H 90 18 146/74 95
05/18/24 07:15 05/18/24 07:15 05/18/24 07:15 05/18/24 07:15 05/18/24 07:15
Intake & Output
05/17/24 05/18/24 05/19/24
06:59 06:59 06:59
Intake Total 420 / 420 900 / 900
Balance 420 / 420 900 / 900
Intake:
Oral fluids 420 / 420 900 / 900
Other:
Number of approximated MODERATE 3 3
amounts of urine
Number of unmeasured liquid
stools
Rectum 3
Lab Results
05/18/24 06:15
05/18/24 06:15
Physical Exam
-
General: No Acute Distress and AOx3
Abdomen: Soft, Distended (Mild) and Tender (Mild)
Skin: Warm and Dry
[2024-05-18 12:24] LABS: Glucose - Point of Care 174 mg/dl (70-99)
[2024-05-18] MEDS: NOVOLOG FLEXPEN-LOW RESISTANCE SC ×2 (14:02→17:00)
--- NOTE | 2024-05-18 14:56 | W.PN.HOSP.TC ---
Today's Communication/Plan
-
Assessment / Plan
Assessment / Plan
Imaging
CTAP
IMPRESSION:
Moderate acute diverticulitis of the mid and distal sigmoid colon with a focal adjacent fluid collection probably a paraovarian cyst versus less likely developing abscess.
Probable uterine fibroid
Mild hepatosplenomegaly.
Hepatic fatty infiltration.
Abd US
IMPRESSION:
Hepatic steatosis with a 1.2 cm cyst adjacent to the gallbladder.
No sonographic evidence of acute cholecystitis or choledocholithiasis.
2 mm right middle lobe pulmonary nodule. This will be emailed to the [facility] pulmonary nodule advisory board
TV/TP
IMPRESSION:
1. Thickened endometrium for age. Differential includes endometrial hyperplasia, polyp and carcinoma. Further evaluation with dedicated hysterosonogram can be obtained if clinically indicated.
2. No fluid collection identified.
3. Nonvisualization of the left ovary.
Physical Exam
NAD, resting comfortably in bed
Scleral anicteric
Moist mucous membranes
No JVD
CTA bilateral
Normal S1-S2 no murmurs
Soft nontender nondistended bowel sounds active
No peripheral pitting edema
Moves extremities spontaneously
AAOx3
Assessment and Plan
Sepsis secondary to acute diverticulitis with possible abscess
-Continue IV antibiotics with Zosyn
-Colorectal surgery following, CT abdomen and pelvis with contrast reordered
-Will need outpatient GI follow-up for colonoscopy in 6 to 8 weeks once colon cools down.
Hepatic steatosis noted on CT abdomen pelvis with hepatic fatty infiltration
-Outpatient GI follow-up
Thickened endometrium
-Outpatient CONSTRUCTION FIELD ENGINEER follow-up in 1 to 2 weeks posthospitalization per colorectal surgery as they spoke with CONSTRUCTION FIELD ENGINEER
Diabetes A1c 8.6 continue sliding scale
Transaminitis elevated likely related to fatty liver
Hyperbilirubinemia improved likely can avoid MRCP however would appreciate GIs input
GERD/PUD continue Protonix Pepcid
Anticipated Discharge: > 48 hours
Subjective/Interval History
-
Date of Service: May 18, 2024
Seen and examined. No new complaints. No acute overnight event
States overnight had a rough night
Still having diarrhea small-volume
No blood in stool
Some nausea more bloated
Objective Data
-
Labs:
Laboratory Results
05/18/24
06:15
WBC 9.1
Hgb 11.6 L
Hct 34.5 L
Plt Count 220
PT 14.3
INR 1.08
Sodium 139
Potassium 3.4 L
Chloride 100
Carbon Dioxide 26
BUN 8
Creatinine 0.6
Glucose 248 H
Calcium 8.7
Total Bilirubin 1.9 H D
AST 46 H
ALT 39 H
Alkaline Phosphatase 204 H
Vital Signs:
Vital Signs
Temp Pulse Resp BP Pulse Ox
100.4 F H 90 18 146/74 95
05/18/24 07:15 05/18/24 07:15 05/18/24 07:15 05/18/24 07:15 05/18/24 07:15
I&O
05/17/24 05/18/24 05/19/24
06:59 06:59 06:59
Intake Total 420 / 420 900 / 900
Balance 420 / 420 900 / 900
[2024-05-18 15:11] VITALS: BP 134/78
--- NOTE | 2024-05-18 15:23 | W.PN.GI.CBS2 ---
Addendum entered and electronically signed by Abeba Salinas DO 05/18/24 16:51:
Patient has appointment my office with ENRRIQUE Watson on 06/12/2024 at 7:30 AM
Original Note:
Today's Communication / Plan
-
Continue monitoring liver function tests over the next few weeks
No further intervention needed at this time
Assessment / Plan
-
IMPRESSION
Shyla is a 58-year-old obese female with history of IBS and last colonoscopy decades ago, subjective gastric and duodenal ulcers ,on PPI and H2 belem daily, prior anal sphincterotomy for fissure who came to the emergency room on 05/15/2024
with ongoing abdominal pain that was more pelvic in nature for roughly 3 days with loose stools and nausea,sigmoid diverticulitis on imaging.
Patient under GI observation for her elevated liver function tests and total bilirubin.
ASSESSMENT
# Elevated total bilirubin alkaline phosphatase in the setting of diverticulitis
--Abdominal ct scan05/15/2024
IMPRESSION:
Moderate acute diverticulitis of the mid and distal sigmoid colon with a focal adjacent fluid collection probably a paraovarian cyst versus less likely developing abscess.
Probable uterine fibroid
-- As per the transvaginal [id number]/17/2024
1. Thickened endometrium for age. Differential includes endometrial hyperplasia, polyp and carcinoma. Further evaluation with dedicated hysterosonogram can be obtained if clinically indicated.
2. No fluid collection identified.
3. Nonvisualization of the left ovary.
Total bilirubin trending down from 3.1 to 1.9, alkaline phosphatase 169 to 204 with no biliary duct pathology, ALT 39, AST 46 (05/18/2024)
--INR 1.08
-- CT abdomen/pelvis repeated on 05/18/2024 for persistent nausea and bloating
IMPRESSION:
1. Acute sigmoid diverticulitis. Associated approximately 3.5 cm air and fluid collection immediately adjacent to the uterus, most likely small diverticular abscess.
2. In addition to these findings, there is 6.9 cm superior left pelvic fluid collection as above. This shows somewhat lobulated margins, no well-defined enhancing rim, surrounding inflammatory stranding, and is immediately adjacent to left gonadal
vessels. Differential considerations include diverticular abscess and secondary infection of another cystic structure such as lymphocele or paraovarian cyst.
3. Hepatomegaly and splenomegaly. Hepatic fatty infiltration.
4. Unchanged 2 mm right middle lobe nodule as seen previously.
5. Probable uterine fibroid as seen previously.
PLAN
--Etiology of conjugated hyperbilirubinemia can be due to sepsis or ischemia, medication, PSC, PBC, MORENO
-BILIRUBIN IS TRENDING DOWN
-Diverticulitis responding to antibiotics,bilirubin improvement suggests an infectious process
-Gynecology is going to follow-up on the endometrial thickness and pelvic fluid collection
-Colorectal surgery is going to follow-up on the small diverticular abscess
--Gastroenterology would follow on any further elevations in the liver function tests
-- Patient would need to monitor her liver function tests with her PCP over the next few weeks
# Diverticulitis responding to antibiotics
Code status-Full code
DVT prophylaxis- Lovenox
Subjective
Subjective
Date of Service: May 18, 2024
Patient feels less nauseous but does complain of bloating.No other issues.
Objective
Data Reviewed
Laboratory Data:
Laboratory Results
05/18/24 06:15
05/18/24 06:15
Laboratory Results
PT 14.3 Sec (11.4-14.6) 05/18/24 06:15
INR 1.08 05/18/24 06:15
Phosphorus 2.8 mg/dl (2.5-4.5) 05/18/24 06:15
Magnesium 1.8 mg/dl (1.6-2.3) 05/18/24 06:15
Total Bilirubin 1.9 mg/dl (0.2-1.3) H D 05/18/24 06:15
AST 46 U/L (14-36) H 05/18/24 06:15
ALT 39 U/L (0-35) H 05/18/24 06:15
Alkaline Phosphatase 204 U/L (38-126) H 05/18/24 06:15
Vital Signs and I&O:
Vital Signs
Temp Pulse Resp BP Pulse Ox
98.9 F 90 18 146/74 96
05/18/24 15:20 05/18/24 07:15 05/18/24 15:20 05/18/24 07:15 05/18/24 15:20
I&O
05/17/24 05/18/24 05/19/24
06:59 06:59 06:59
Intake Total 420 / 420 900 / 900
Balance 420 / 420 900 / 900
Physical Exam
Physical Exam
HEENT: Anicteric
Cardiology: Normal Sinus Rhythm, S1 and S2
Pulmonary: Clear
GI: Soft, Distended, Non Tender, Normal Bowel Sounds and Other (Tympanic percussion note)
Extremities: No Edema
Neuro: Non Focal
[2024-05-18 15:30] VITALS: BP 134/78
[2024-05-18 16:39] LABS: Glucose - Point of Care 131 mg/dl (70-99)
[2024-05-18] MEDS: LOVENOX 40 MG SC (17:43)
--- NOTE | 2024-05-18 20:30 | PTCARENOTE ---
Pt transferred from ICU to 3W via wheelchair. Pt 1 assist from wheelchair to bed, AAOX3, vitals stable BP: 153/74 HR 91, afebrile sating 91% RA. Pt oriented to room, call dia within reach, placed on TELE monitor 21 (NS). Will continue to monitor.
[2024-05-18] MEDS: COMPAZINE 5 MG IV (21:28)
[2024-05-18 22:19] LABS: Glucose - Point of Care 352 mg/dl (70-99)
[2024-05-19] VITALS (18 sets, daily range): BP systolic 83–176; BP diastolic 65–102
[2024-05-19] MEDS: ZOFRAN 4 MG IV ×3 (04:07→17:56)
[2024-05-19] MEDS: ZOSYN 50 IV ×3 (04:08→18:09)
[2024-05-19 05:45] LABS: Hematocrit 33.7 % (37.0-47.0); Hemoglobin 11.2 g/dL (12.0-16.0); Mean Corp Hgb Conc. 33.2 g/dL (33.0-37.0); Mean Corpuscular Hgb 26.9 pg (27.0-31.0); Mean Corpuscular Volume 80.8 fL (81.0-99.0); Mean Platelet Volume 9.6 fL (7.4-10.4); Platelet Count 210 10^3/uL (130-400); Red Blood Cell Count 4.17 10^6/uL (4.20-5.40); Red Cell Dist. Width 13.4 % (11.5-14.5); White Blood Cell Count 8.1 10^3/uL (4.8-10.8)
[2024-05-19 06:16] LABS: ALT (SGPT) 36 U/L (0-35); AST (SGOT) 37 U/L (14-36); Albumin 3.2 g/dl (3.5-5.0); Alkaline Phosphatase 218 U/L (38-126); Blood Urea Nitrogen 8 mg/dl (7-17); Calcium 8.7 mg/dl (8.4-10.2); Carbon Dioxide 26 mmol/L (22-30); Chloride 100 mmol/L (98-107); Estimated Creatinine Clearance 109 ml/min; Glucose 210 mg/dl (70-99); Magnesium 1.7 mg/dl (1.6-2.3); Phosphorus 3.7 mg/dl (2.5-4.5); Potassium 3.4 mmol/L (3.5-5.1); Sodium 139 mmol/L (135-145); Total Bilirubin 0.9 mg/dl (0.2-1.3); Total Protein 6.1 g/dl (6.3-8.2); eGFR > 60.00
[2024-05-19] MEDS: TORADOL 15 MG IV ×2 (06:19→18:34)
[2024-05-19 08:04] LABS: Glucose - Point of Care 188 mg/dl (70-99)
[2024-05-19] MEDS: PEPCID 20 MG PO (08:19)
[2024-05-19] MEDS: PROTONIX 40 MG PO (08:19)
[2024-05-19] MEDS: NOVOLOG FLEXPEN-LOW RESISTANCE 1 UNITS SC ×2 (08:19→12:27)
--- NOTE | 2024-05-19 10:39 | CON.ID ---
Consultation
-
Date/Time Consultation Requested: 05/19/24 8:28
Date/Time Consultation Performed: 05/19/24 10:39
Requesting Provider: Dr Veras
Performing Provider: Dr Chapa
Reason for Consultation: sigmoid diverticulitis - possible abscess
Chief Complaint / Past History
Chief Complaint
Abdominal Pain
History of Present Illness
Ms Campo is a 58 year old female with h/o IBS (diarrheal type, on PRN Imodium and advil) who presented here on 05/15 for acute onset of sharp abdominal pain. Two days ago she began with diarrhea, nausea and abdominal pain. No vomiting. Pain
increased with eating, BMs and voiding. No blood in the stools. The abdominal pain worsened, though the diarrhea resolved. Progressed to fevers, chills and sweats. No previous diverticulitis.
Reviewed with patient and reports rash and facial swelling with penicillin while she had scarlet fever as a child. Subsequently she has tolerated Augmentin outpatient and now zosyn. Because she is known to tolerate the amoxicillin component of
augmentin she is not allergic to penicillin and I have removed her allergy.
Since arrival here tmax is 100.4 orally, bp stable, wbc initially 15 now 8.1, gb 13.8 now 11.2, plt 210, L shift was present on arrival, na 139, cr 0.6, a1c 8.6, t bili 2.2 on arrival now 0.9, d bili 1.3 on HD 1, ast currently 37, alt currently 36,
alk phos 218, 05/18 CT a/p with IV and oral acute sigmoid diverticulitis with air and fluid collection immediately adjacent the the uterus - likely small abscess, also a 6.9 cm superior L pelvic fluid collection with lobulated margins: diverticular
abscess vs secondary infection or cystic structure, 05/17 transva US: no fluid collection identified, 05/16 abd US: fluid collections were not IDd.
Past History
Additional Past Medical History:
Obesity, hypertension, prior anal fissure, IBS with diarrhea, asthma
Additional Past Surgical History:
(Anal fissure 40 years ago, x 2, ureteroscopy for stones)
Allergy History:
erythromycin base Allergy (Verified 05/15/24 14:18)
Unknown
Tetracyclines Allergy (Verified 05/15/24 14:18)
Unknown
Medications Reviewed: Yes
Social History
Tobacco: Former Smoker
Alcohol: Daily (one glass wine nightly)
Personal:
Family History
Family History: Not Pertinent
Review of Systems
Review of Systems
General: Negative Fever or Chills
All systems: All other systems were reviewed and were negative
Vital Signs
Temp Pulse Resp BP Pulse Ox
99.3 F 80 18 149/69 97
05/19/24 07:50 05/19/24 07:50 05/19/24 07:50 05/19/24 07:50 05/19/24 07:50
Physical Exam
Physical Exam
Constitutional: No Acute Distress
Cardiovascular: Regular Rate and S1/S2; Negative Murmur or Rub
Pulmonary: Clear and Symmetric; Negative Wheezes, Rales or Rhonchi
Gastrointestinal: Soft, Tender (RLQ), Distended and Normal Bowel Sounds
Skin: Warm and Dry; Negative Rash or Jaundice
Neurological: Awake
Lab / Diagnostic Study Results
05/19/24 05:13
05/19/24 05:13
Abs Immat Gran (auto) 0.1 10^3/uL (0-0.05) H 05/15/24 14:24
Absolute Neuts (auto) 12.9 10^3/uL (1.4-6.5) H 05/15/24 14:24
Absolute Lymphs (auto) 1.4 10^3/uL (1.2-3.4) 05/15/24 14:24
Absolute Monos (auto) 0.9 10^3/uL (0.1-0.6) H 05/15/24 14:24
Absolute Basos (auto) 0.1 10^3/uL (0-0.2) 05/15/24 14:24
Immature Gran % 0.6 % (0-0.5) H 05/15/24 14:24
Neutrophils % 84.2 % (42.2-75.2) H 05/15/24 14:24
Lymphocytes % 9.1 % (20.5-51.1) L 05/15/24 14:24
Monocytes % 5.5 % (1.7-9.3) 05/15/24 14:24
Eosinophils % 0.3 % (0-6) 05/15/24 14:24
Basophils % 0.3 % (0-2) 05/15/24 14:24
PT 14.3 Sec (11.4-14.6) 05/18/24 06:15
INR 1.08 05/18/24 06:15
Microbiology Results
Micro:
05/18/24 12:48 C. difficile GDH Antigen & Toxins - Final
Feces/Stool Negative for toxigenic C.difficile
Assessment / Plan
Diverticulitis
Two Pelvic Fluid collection
Class II/III obesity
H/o diarrheal type IBS
- attempt at drainage of the larger 6 cm collection with IR, Dr Deng and Dr Hope IR both reviewed the studies and the smaller 3 cm collection is not approachable
- aerobic and anaerobic cultures
- made npo pending the procedure
- colorectal surgery is following
- continue zosyn for present
Reviewed with patient and reports rash and facial swelling with penicillin while she had scarlet fever as a child. Subsequently she has tolerated Augmentin outpatient and now zosyn. Because she is known to tolerate the amoxicillin component of
augmentin she is not allergic to penicillin and I have removed her allergy.
Discussed at length with patient (about 20 minutes total) going over treatment, prognosis and duration of therapy. Explained that a relapsing/remitting course is relatively common and that while we are attempting to avoid surgery in the long run it
may still be considered if she is not responding as expected to drainage/medical management.
Care Review
Plan reviewed with: Physician (Dr Bartholomew, Dr Veras, Dr Deng - drainage of larger collection)
--- NOTE | 2024-05-19 11:17 | W.PN.CRS1 ---
Today's Communication / Plan
-
Low residue diet
Assessment/Plan
-
58 yo female presenting with sigmoid diverticulitis with focal fluid collection along the mesenteric border of the mid sigmoid colon (?ovarian) on CT imaging. Leukocytosis present on admission and now trending down, LFT's trending up. US of
gallbladder without stones/cholecystitis. Trans-vaginal US in follow up of pelvic fluid seen on CT; unfortunately the left ovary was not visualized, no fluid collection seen on US. Thickened endometrial stripe present. AFVSS. Nausea persists but
pain improved and passing stool/flatus.
-- Advance to low residue diet
-- CT abdomen and pelvis examined, given her lack of pain and normal vital signs as well as lack of leukocytosis, will hold off on any IR drainage for now
--C. difficile negative
--Discussed transvaginal results with regional facilities manager NOC TECHNICIAN and given absence of vaginal bleeding, can follow as an OP for further diagnostic work up
--Continue ABX
--Add simethicone
--Will need OP colonoscopy eventually
Subjective Data
Subjective Data
Date of Service: May 19, 2024
Patient states she feels pressure and gas and she is nauseous from some of her medications. Otherwise she feels well. Her pain is decreased. She currently has no complaints.
Objective Data
-
Vital Signs
Temp Pulse Resp BP Pulse Ox
99.3 F 80 18 149/69 97
05/19/24 07:50 05/19/24 07:50 05/19/24 07:50 05/19/24 07:50 05/19/24 07:50
Intake & Output
05/18/24 05/19/24 05/20/24
06:59 06:59 06:59
Intake Total 900 / 900 660 / 660
Balance 900 / 900 660 / 660
Intake:
Oral fluids 900 / 900 660 / 660
Other:
Number of approximated MODERATE 3 2
amounts of urine
Number of unmeasured liquid
stools
Rectum 3
Lab Results
05/19/24 05:13
05/19/24 05:13
Physical Exam
-
General: No Acute Distress and AOx3
Abdomen: Soft, Non Distended and Non Tender
Skin: Warm and Dry
[2024-05-19 12:00] LABS: Glucose - Point of Care 165 mg/dl (70-99)
--- NOTE | 2024-05-19 13:20 | W.PN.HOSP.TC ---
Today's Communication/Plan
-
Assessment / Plan
Assessment / Plan
Imaging
CTAP
IMPRESSION:
Moderate acute diverticulitis of the mid and distal sigmoid colon with a focal adjacent fluid collection probably a paraovarian cyst versus less likely developing abscess.
Probable uterine fibroid
Mild hepatosplenomegaly.
Hepatic fatty infiltration.
Abd US
IMPRESSION:
Hepatic steatosis with a 1.2 cm cyst adjacent to the gallbladder.
No sonographic evidence of acute cholecystitis or choledocholithiasis.
2 mm right middle lobe pulmonary nodule. This will be emailed to the [facility] pulmonary nodule advisory board
TV/TP
IMPRESSION:
1. Thickened endometrium for age. Differential includes endometrial hyperplasia, polyp and carcinoma. Further evaluation with dedicated hysterosonogram can be obtained if clinically indicated.
2. No fluid collection identified.
3. Nonvisualization of the left ovary.
CTAP with con
IMPRESSION:
1. Acute sigmoid diverticulitis. Associated approximately 3.5 cm air and fluid collection immediately adjacent to the uterus, most likely small diverticular abscess.
2. In addition to these findings, there is 6.9 cm superior left pelvic fluid collection as above. This shows somewhat lobulated margins, no well-defined enhancing rim, surrounding inflammatory stranding, and is immediately adjacent to left gonadal
vessels. Differential considerations include diverticular abscess and secondary infection of another cystic structure such as lymphocele or paraovarian cyst.
3. Hepatomegaly and splenomegaly. Hepatic fatty infiltration.
4. Unchanged 2 mm right middle lobe nodule as seen previously.
5. Probable uterine fibroid as seen previously.
Physical Exam
NAD, resting comfortably in bed
Scleral anicteric
Moist mucous membranes
No JVD
CTA bilateral
Normal S1-S2 no murmurs
Soft nontender nondistended bowel sounds active
No peripheral pitting edema
Moves extremities spontaneously
AAOx3
Assessment and Plan
Sepsis secondary to acute diverticulitis with abscess and pelvic fluid collection
-Continue IV antibiotics with Zosyn
-Colorectal surgery following, CT abdomen and pelvis with contrast reordered
-Will need outpatient GI follow-up for colonoscopy in 6 to 8 weeks once colon cools down.
-IR unable to drain 3.5cm diverticular abscess safely
-IR will attempt to drain 6.9cm superior left pelvic fluid collection
-ID consulted
Hepatic steatosis noted on CT abdomen pelvis with hepatic fatty infiltration
-Outpatient GI follow-up
Thickened endometrium
-Outpatient SLIDE FASTENER CHAIN ASSEMBLER follow-up in 1 to 2 weeks posthospitalization per colorectal surgery as they spoke with SLIDE FASTENER CHAIN ASSEMBLER
Diabetes A1c 8.6 continue sliding scale ccdiet/low residue, on dc can melita plan to provide metformin 500mg BID.
Transaminitis elevated likely related to fatty liver
Hyperbilirubinemia improved likely can avoid MRCP however would appreciate GIs input
HypoKalemia replete prn
GERD/PUD continue Protonix Pepcid
Anticipated Discharge: > 48 hours
Subjective/Interval History
-
Date of Service: May 19, 2024
seen and examnied. no new compalints.
no acute overnight events
Objective Data
-
Labs:
Laboratory Results
05/19/24
05:13
WBC 8.1
Hgb 11.2 L
Hct 33.7 L
Plt Count 210
Sodium 139
Potassium 3.4 L
Chloride 100
Carbon Dioxide 26
BUN 8
Creatinine 0.6
Glucose 210 H
Calcium 8.7
Total Bilirubin 0.9 D
AST 37 H
ALT 36 H
Alkaline Phosphatase 218 H
Vital Signs:
Vital Signs
Temp Pulse Resp BP Pulse Ox
99.3 F 80 18 149/69 97
05/19/24 07:50 05/19/24 07:50 05/19/24 07:50 05/19/24 07:50 05/19/24 07:50
I&O
05/18/24 05/19/24 05/20/24
06:59 06:59 06:59
Intake Total 900 / 900 660 / 660
Balance 900 / 900 660 / 660
[2024-05-19] MEDS: JANUVIA 100 MG PO (14:20)
--- NOTE | 2024-05-19 14:56 | PN.DE.MGMTRT ---
Insulin Management
- -
05/19/2024 Diabetes Management Consult
Patient admitted 05/15 with abdominal pain, diarrhea and nausea - acute sigmoid diverticulitis. PMH Obesity, GERD, IBS, Kidney stones. No history of diabetes. A1C on admission 8.8%, cr .6, eGFR > 60.
Patient is awake alert and oriented sitting in bed. 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 Discussed how very difficult this year has been
which certainly could contribute to onset of diabetes. She admits she has not seen a doctor in several years. 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
Glucose fasting has ranged 163 to 248 for past 3 days, will start 10 units lantus @ hs. Due to IBS and current diverticulitis will not start metformin but will start Januvia. When abdominal symptoms subside would cautiously consider metformin 500
mg.
Provided and reviewed diabetes education booklet and highlighted type 2 diabetes, glucose monitoring schedule, target ranges and A1C.
Instructed on insulin pen prep and injection technique with good return demonstration. Provided Contour NextGen meter and instructed on testing procedure.
Will follow for further needed adjustments and to reinforce insulin and glucose monitor.
Discussed with patients nurse.
Diabetes History
- -
Type of Diabetes: 2
Pre-Admission Diabetes Regimen
05/19/24
05:13
Creatinine 0.6
Lab Results
Hemoglobin A1c 8.6 % (4.0-5.6) H 05/16/24 05:17
Insulin Pump Settings
IP Diabetes Regimen
05/18/24 05/18/24 05/19/24
16:33 22:18 05:13
Glucose 210 H
POC Glucose 131 H 352 H
05/19/24 05/19/24
07:59 11:57
Glucose
POC Glucose 188 H 165 H
Meal type: Lunch
Meal type: Breakfast
Amount consumed: 0
Amount consumed: 100%
Patient Education
--- NOTE | 2024-05-19 16:51 | CM ---
Alert awake oriented patient who lives with her dgt Emir in a 2 story home with 1 steps to enter and 12 steps to bed/bathroom. She is independent in driving and all activates of daily living.Offered VN she declined need.
No VN in past . No SNF hx
Pharmacy [facility] [address] [place]
PCP Dr Dickerson
PLAN Home with no needs
--- NOTE | 2024-05-19 16:59 | PTCARENOTE ---
[facility] note: Spoke to Beena in Microbiology regarding order for Anaerobic culture. Sample in sterile capped syringe. asked if sample needs to be transferred to Anaerobic culture bottle but stated 'send it in syringe and will take care of it'. sample
sent in capped sterile syringe.
[2024-05-19 17:51] LABS: Glucose - Point of Care 129 mg/dl (70-99)
[2024-05-19] MEDS: NOVOLOG FLEXPEN-LOW RESISTANCE SC (17:52)
[2024-05-19] MEDS: LOVENOX SC ×2 (18:10→18:17)
[2024-05-19 21:37] LABS: Glucose - Point of Care 218 mg/dl (70-99)
[2024-05-19] MEDS: LANTUS 0.1 UNITS SC (22:12)
[2024-05-20] MEDS: ZOFRAN 4 MG IV ×2 (00:01→09:02)
[2024-05-20] MEDS: ZOSYN 50 IV ×4 (00:01→15:59)
[2024-05-20 03:00] VITALS: BP 157/85
[2024-05-20] MEDS: COMPAZINE 5 MG IV (04:49)
[2024-05-20] MEDS: TORADOL 15 MG IV (04:50)
[2024-05-20 05:43] LABS: Hematocrit 34.2 % (37.0-47.0); Hemoglobin 11.4 g/dL (12.0-16.0); Mean Corp Hgb Conc. 33.3 g/dL (33.0-37.0); Mean Corpuscular Hgb 27.1 pg (27.0-31.0); Mean Corpuscular Volume 81.2 fL (81.0-99.0); Mean Platelet Volume 9.6 fL (7.4-10.4); Platelet Count 235 10^3/uL (130-400); Red Blood Cell Count 4.21 10^6/uL (4.20-5.40); Red Cell Dist. Width 13.5 % (11.5-14.5); White Blood Cell Count 8.1 10^3/uL (4.8-10.8)
[2024-05-20 06:09] LABS: ALT (SGPT) 29 U/L (0-35); AST (SGOT) 23 U/L (14-36); Albumin 3.4 g/dl (3.5-5.0); Alkaline Phosphatase 208 U/L (38-126); Blood Urea Nitrogen 13 mg/dl (7-17); Calcium 8.9 mg/dl (8.4-10.2); Carbon Dioxide 27 mmol/L (22-30); Chloride 101 mmol/L (98-107); Estimated Creatinine Clearance 109 ml/min; Glucose 163 mg/dl (70-99); Magnesium 1.9 mg/dl (1.6-2.3); Phosphorus 4.2 mg/dl (2.5-4.5); Potassium 3.6 mmol/L (3.5-5.1); Sodium 140 mmol/L (135-145); Total Bilirubin 0.8 mg/dl (0.2-1.3); Total Protein 6.1 g/dl (6.3-8.2); eGFR > 60.00
[2024-05-20 07:15] VITALS: BP 124/63
[2024-05-20 07:52] LABS: Glucose - Point of Care 190 mg/dl (70-99)
[2024-05-20] MEDS: JANUVIA 100 MG PO (09:02)
[2024-05-20] MEDS: PEPCID 20 MG PO (09:02)
[2024-05-20] MEDS: NOVOLOG FLEXPEN-LOW RESISTANCE 1 UNITS SC (09:03)
[2024-05-20] MEDS: PROTONIX 40 MG PO (09:03)
--- NOTE | 2024-05-20 10:33 | W.PN.CRS1 ---
Today's Communication / Plan
-
will s/o, please contact if further issues arise
f/u with Dr. Bartholomew in a few weeks
Assessment/Plan
-
58 yo female presenting with sigmoid diverticulitis with focal fluid collection along the mesenteric border of the mid sigmoid colon (?ovarian) on CT imaging. Leukocytosis present on admission and now trending down, LFT's trending up. US of
gallbladder without stones/cholecystitis. Trans-vaginal US in follow up of pelvic fluid seen on CT; unfortunately the left ovary was not visualized, no fluid collection seen on US. Thickened endometrial stripe present. AFVSS. Nausea persists but
pain improved and passing stool/flatus.
--Continue low residue diet
--IR drainage flushes per IR recommendations. Will need teaching prior to discharge.
--C. difficile negative
--Discussed transvaginal results with operations program manager COAL PIPELINE OPERATOR and given absence of vaginal bleeding, can follow as an OP for further diagnostic work up
--Continue ABX
-- Case management for visiting nurse given IR drain.
--Will need OP colonoscopy eventually
--No surgery is required at this time. Will sign off. Please contact us if further issues arise. Follow-up with Dr. Bartholomew in the office in a few weeks. IR drain flushes per IR.
Subjective Data
Subjective Data
Date of Service: May 20, 2024
Patient states she feels much better. She is tolerating a diet. She has bowel movements and gas. She denies nausea or vomiting.
Objective Data
-
Vital Signs
Temp Pulse Resp BP Pulse Ox
98.1 F 77 18 124/63 94
05/20/24 07:15 05/20/24 07:15 05/20/24 07:15 05/20/24 07:15 05/20/24 07:15
Intake & Output
05/19/24 05/20/24 05/21/24
06:59 06:59 06:59
Intake Total 660 / 660 1070 / 1070
Output Total 40
Balance 660 / 660 1030 / 1030
Intake:
Oral fluids 660 / 660 960 / 960
IV piggybacks 100 / 100
Amount instilled into Drain (
Total)
Left Lower Abdomen A Placed in
IR
Output:
Drain Output (Total)
Left Lower Abdomen A Placed in
IR
Other:
Number of approximated MODERATE 2 5
amounts of urine
Lab Results
05/20/24 05:10
05/20/24 05:10
Physical Exam
-
General: No Acute Distress and AOx3
Abdomen: Soft, Non Distended, Non Tender and Other (IR drain yellow serous output)
Skin: Warm and Dry
[2024-05-20 11:14] VITALS: BP 144/74
[2024-05-20] MEDS: TYLENOL 650 MG PO (11:21)
[2024-05-20 11:38] LABS: Glucose - Point of Care 300 mg/dl (70-99)
[2024-05-20] MEDS: NOVOLOG FLEXPEN-LOW RESISTANCE 4 UNITS SC (12:42)
--- NOTE | 2024-05-20 13:35 | W.PN.HOSP.TC ---
Today's Communication/Plan
-
Assessment / Plan
Assessment / Plan
Imaging
CTAP
IMPRESSION:
Moderate acute diverticulitis of the mid and distal sigmoid colon with a focal adjacent fluid collection probably a paraovarian cyst versus less likely developing abscess.
Probable uterine fibroid
Mild hepatosplenomegaly.
Hepatic fatty infiltration.
Abd US
IMPRESSION:
Hepatic steatosis with a 1.2 cm cyst adjacent to the gallbladder.
No sonographic evidence of acute cholecystitis or choledocholithiasis.
2 mm right middle lobe pulmonary nodule. This will be emailed to the [facility] pulmonary nodule advisory board
TV/TP
IMPRESSION:
1. Thickened endometrium for age. Differential includes endometrial hyperplasia, polyp and carcinoma. Further evaluation with dedicated hysterosonogram can be obtained if clinically indicated.
2. No fluid collection identified.
3. Nonvisualization of the left ovary.
CTAP with con
IMPRESSION:
1. Acute sigmoid diverticulitis. Associated approximately 3.5 cm air and fluid collection immediately adjacent to the uterus, most likely small diverticular abscess.
2. In addition to these findings, there is 6.9 cm superior left pelvic fluid collection as above. This shows somewhat lobulated margins, no well-defined enhancing rim, surrounding inflammatory stranding, and is immediately adjacent to left gonadal
vessels. Differential considerations include diverticular abscess and secondary infection of another cystic structure such as lymphocele or paraovarian cyst.
3. Hepatomegaly and splenomegaly. Hepatic fatty infiltration.
4. Unchanged 2 mm right middle lobe nodule as seen previously.
5. Probable uterine fibroid as seen previously.
Physical Exam
NAD, resting comfortably in bed
Scleral anicteric
Moist mucous membranes
No JVD
CTA bilateral
Normal S1-S2 no murmurs
Soft nontender nondistended bowel sounds active
CATHERINE drain with yellow fluis
No peripheral pitting edema
Moves extremities spontaneously
AAOx3
Assessment and Plan
Sepsis secondary to acute diverticulitis with abscess and pelvic fluid collection
-Continue IV antibiotics with Zosynggggggggggggggggggggggggggggggggggggggggggggggggggggggggggggggggggggggggggg
-Colorectal surgery following, CT abdomen and pelvis with contrast reordered
-Will need outpatient GI follow-up for colonoscopy in 6 to 8 weeks once colon cools down.
-IR unable to drain 3.5cm diverticular abscess safely
-IR able to place drain and aspirate 6/9cm paraovarian lesion.
--culture data pending/ cytology pending
-ID following
Hepatic steatosis noted on CT abdomen pelvis with hepatic fatty infiltration
-Outpatient GI follow-up
Thickened endometrium
-Outpatient HEALTH SANITARIAN follow-up in 1 to 2 weeks posthospitalization per colorectal surgery as they spoke with HEALTH SANITARIAN
Diabetes A1c 8.6 continue sliding scale ccdiet/low residue, on dc can melita plan to provide metformin 500mg BID.
Transaminitis elevated likely related to fatty liver
Hyperbilirubinemia improved likely can avoid MRCP however would appreciate GIs input
HypoKalemia replete prn
GERD/PUD continue Protonix Pepcid
Anticipated Discharge: 24 - 48 hours
Subjective/Interval History
-
Date of Service: May 20, 2024
seen and examined. no new complaints. no acute ovenright events
Objective Data
-
Labs:
Laboratory Results
05/20/24
05:10
WBC 8.1
Hgb 11.4 L
Hct 34.2 L
Plt Count 235
Sodium 140
Potassium 3.6
Chloride 101
Carbon Dioxide 27
BUN 13
Creatinine 0.6
Glucose 163 H
Calcium 8.9
Total Bilirubin 0.8
AST 23
ALT 29
Alkaline Phosphatase 208 H
Vital Signs:
Vital Signs
Temp Pulse Resp BP Pulse Ox
98.0 F 96 18 144/74 98
05/20/24 11:14 05/20/24 11:14 05/20/24 11:14 05/20/24 11:14 05/20/24 11:14
I&O
05/19/24 05/20/24 05/21/24
06:59 06:59 06:59
Intake Total 660 / 660 1070 / 1070 530 / 530
Output Total 40 / 40
Balance 660 / 660 1030 / 1030 530 / 530
--- NOTE | 2024-05-20 14:04 | PN.DE.MGMTRT ---
Insulin Management
- -
05/20/2024 Diabetes Management Consult Follow up
Patient admitted 05/15 with abdominal pain, diarrhea and nausea - acute sigmoid diverticulitis. PMH Obesity, GERD, IBS, Kidney stones. No history of diabetes. A1C on admission 8.8%, cr .6, eGFR > 60.
Patient is awake alert and oriented standing at bedside. 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 Discussed how very difficult this year has been which certainly
could contribute to onset of diabetes. She admits she has not seen a doctor in several years. 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
05/19 Glucose fasting has ranged 163 to 248 for past 3 days, will start 10 units lantus @ hs. Due to IBS and current diverticulitis will not start metformin but will start Januvia. When abdominal symptoms subside would cautiously consider
metformin 500 mg.
05/20 Fasting glucose 192, will increase hs lantus to 13 units. Pre lunch glucose 300, will start 5 units novolog AC with low corrective insulin.
Provided and reviewed diabetes education booklet and highlighted type 2 diabetes, glucose monitoring schedule, target ranges and A1C.
Instructed on insulin pen prep and injection technique with good return demonstration. Provided Contour NextGen meter and instructed on testing procedure.
Will follow for further needed adjustments and to reinforce insulin and glucose monitor.
Discussed with patients nurse.
Diabetes History
- -
Type of Diabetes: 2 requiring insulin
Pre-Admission Diabetes Regimen
05/20/24
05:10
Creatinine 0.6
Lab Results
Hemoglobin A1c 8.6 % (4.0-5.6) H 05/16/24 05:17
Insulin Pump Settings
IP Diabetes Regimen
05/19/24 05/19/24 05/20/24
17:50 21:36 05:10
Glucose 163 H
POC Glucose 129 H 218 H
05/20/24 05/20/24
07:51 11:37
Glucose
POC Glucose 190 H 300 H
Meal type: Breakfast
Amount consumed: 100%
Patient Education
[2024-05-20 15:09] VITALS: BP 167/83
--- NOTE | 2024-05-20 15:22 | W.PN.ID1 ---
Date of Service
Date of Service: May 20, 2024
Today's Communication
- switched to augmentin, continue through 06/02
- follow up in my office 06/02, stable for dc from ID perspective, I will follow up culture and call if changes need to be made
Assessment / Plan
Diverticulitis
Two Pelvic Fluid collection
Class II/III obesity
H/o diarrheal type IBS
- drain with 20 ccs output - will defer plans for removal to colorectal surgery
- drain care instructions will be given by HENRY OSUNA
- cytology in progress
- aerobic and anaerobic cultures - in progress, no organisms on the gram stain
- colorectal surgery is following
- switched to augmentin, continue through 06/02
- follow up in my office 06/02, stable for dc from ID perspective, I will follow up culture and call if changes need to be made
Chief Complaint
-: Other (intraabdominal abscesses)
Subjective / Review of Systems
afebrile
bp stable
drain output 20 ccs yesterday and 20 ccs today
cytology pending
no events overnight
requesting dc to travel out of state
Vital Signs / Physical Exam
Vital Signs
Vital Signs
Temp Pulse Resp BP Pulse Ox
97.7 F 93 18 167/83 98
05/20/24 15:09 05/20/24 15:09 05/20/24 15:09 05/20/24 15:09 05/20/24 15:09
Physical Exam
Constitutional: No Acute Distress
Cardiovascular: Regular Rate and S1/S2; Negative Murmur or Rub
Pulmonary: Clear and Symmetric; Negative Wheezes or Rales
Gastrointestinal: Soft, Non Tender (with firm palpation), Non Distended and Normal Bowel Sounds
Skin: Warm and Dry; Negative Rash or Jaundice
Lines: Other (drain in place - serous colored fluid)
Objective Data
Lab Data
Lab Results
05/20/24 05:10
05/20/24 05:10
PT 14.3 Sec (11.4-14.6) 05/18/24 06:15
INR 1.08 05/18/24 06:15
Estimated Creat Clear 109 ml/min 05/20/24 05:10
Total Bilirubin 0.8 mg/dl (0.2-1.3) 05/20/24 05:10
AST 23 U/L (14-36) 05/20/24 05:10
ALT 29 U/L (0-35) 05/20/24 05:10
Alkaline Phosphatase 208 U/L (38-126) H 05/20/24 05:10
Most recent labs reviewed.
Micro Results:
05/19/24 16:30 Anaerobic Culture - Preliminary
Abdomen Culture pending. Anaerobic cultures are examined after 3
days incubation. Additional information to follow.
05/19/24 16:30 Wound Culture - Preliminary
Abdomen Gram Stain - Preliminary
05/18/24 12:48 C. difficile GDH Antigen & Toxins - Final
Feces/Stool Negative for toxigenic C.difficile
Care Review
Plan reviewed with: Physician (Dr Veras and Dr Deng - drain care)
--- NOTE | 2024-05-20 16:07 | CM ---
Spoke with pt in room .
She had IR drain placed.
ID involved.
Pt believes she will be dc on po abx.
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
She said dgt Sole will be able to drive her home.
PLAN Home no needs
--- NOTE | 2024-05-20 16:47 | W.DCSUMMARY ---
Discharge Summary
Discharge Data
Date of Admission: 05/15/24
Date of Discharge: 05/20/24
-
Pending Results: No
Additional Pending Results:
58 female history of asthma GERD/PUD, IBS who presents with diarrhea associated abdominal pain nausea with sweats and chills. CT demonstrated evidence of diverticulitis. GI and colorectal surgery evaluated. Started on IV antibiotics. Without
significant improvement therefore repeat CT abdomen pelvis completed demonstrating a 3.5 cm diverticular abscess and paraovarian fluid collection. IR consulted unable to drain 3.5 cm diverticular abscess however was able to drain paraovarian fluid
collection and drain remains in place. Drain care instructions provided by IR. Was evaluated by infectious diseases recommended additional Augmentin until 06/02/2024. Outpatient follow-up with colorectal surgery for drain evaluation and removal.
Additionally should be noted on the initial CT demonstrated potential paraovarian cyst measuring 6.2 cm and a rounded hypodensity in the right side of the uterus suggestive of fibroid measuring 4.4 cm. Transvaginal transpelvic ultrasound obtained
which demonstrated thickened endometrium for age with a differential that included endometrial hyperplasia polyp and carcinoma. No fluid collection identified. Colorectal surgery proceeded with calling [employer] COORDINATOR that recommended outpatient follow-up in
1 to 2 weeks.
Hospital course for complicated by new diagnosis of diabetes as she was noted to have a A1c of 8.6. Was evaluated by the diabetes consulting team. Started on Januvia and long and short acting insulin.
CTAP
IMPRESSION:
Moderate acute diverticulitis of the mid and distal sigmoid colon with a focal adjacent fluid collection probably a paraovarian cyst versus less likely developing abscess.
Probable uterine fibroid
Mild hepatosplenomegaly.
Hepatic fatty infiltration.
2 mm right middle lobe pulmonary nodule. This will be emailed to the [facility] pulmonary nodule advisory board
Abd US
IMPRESSION:
Hepatic steatosis with a 1.2 cm cyst adjacent to the gallbladder.
No sonographic evidence of acute cholecystitis or choledocholithiasis.
Pelvic/TVUS
IMPRESSION:
1. Thickened endometrium for age. Differential includes endometrial hyperplasia, polyp and carcinoma. Further evaluation with dedicated hysterosonogram can be obtained if clinically indicated.
2. No fluid collection identified.
3. Nonvisualization of the left ovary.
CTAP
IMPRESSION:
1. Acute sigmoid diverticulitis. Associated approximately 3.5 cm air and fluid collection immediately adjacent to the uterus, most likely small diverticular abscess.
2. In addition to these findings, there is 6.9 cm superior left pelvic fluid collection as above. This shows somewhat lobulated margins, no well-defined enhancing rim, surrounding inflammatory stranding, and is immediately adjacent to left gonadal
vessels. Differential considerations include diverticular abscess and secondary infection of another cystic structure such as lymphocele or paraovarian cyst.
3. Hepatomegaly and splenomegaly. Hepatic fatty infiltration.
4. Unchanged 2 mm right middle lobe nodule as seen previously.
5. Probable uterine fibroid as seen previously.
Percutaneous Drainage
IMPRESSION: CT-guided drainage of left pelvic fluid collection as described.
More than 30 minutes spent in discharge including
Final examination of the patient
Summarizing hospital stay
Instructions for continuing care to all relevant caregivers
Preparation of discharge records, prescriptions, and referral forms
Total time spent (in minutes): 36mins
Discharge Plan
-
Patient Disposition: Home (Routine Discharge)
Discharge Diagnosis/Procedures: Diverticulitis with diverticular abscess measuring 3.5 cm
Paraovarian fluid-filled collection
Condition: Fair
Diet: Low Sodium, Low Residue and Diabetic, Carb Controlled
Activity: No restrictions
Driving Restrictions: As prior to admission
Blood Work: Repeat liver function tests with PCP in 1-2 weeks
Activity Restrictions/Additional Instructions:
58 female history of asthma GERD/PUD, IBS who presents with diarrhea associated abdominal pain nausea with sweats and chills. CT demonstrated evidence of diverticulitis. GI and colorectal surgery evaluated. Started on IV antibiotics. Without
significant improvement therefore repeat CT abdomen pelvis completed demonstrating a 3.5 cm diverticular abscess and paraovarian fluid collection. IR consulted unable to drain 3.5 cm diverticular abscess however was able to drain paraovarian fluid
collection and drain remains in place. Drain care instructions provided by IR. Was evaluated by infectious diseases recommended additional Augmentin until 06/02/2024. Outpatient follow-up with colorectal surgery for drain evaluation and removal.
Additionally should be noted on the initial CT demonstrated potential paraovarian cyst measuring 6.2 cm and a rounded hypodensity in the right side of the uterus suggestive of fibroid measuring 4.4 cm. Transvaginal transpelvic ultrasound obtained
which demonstrated thickened endometrium for age with a differential that included endometrial hyperplasia polyp and carcinoma. No fluid collection identified. Colorectal surgery proceeded with calling [employer] LOGIST[employer] COORDINATOR that recommended outpatient follow-up in
1 to 2 weeks.
CTAP
IMPRESSION:
Moderate acute diverticulitis of the mid and distal sigmoid colon with a focal adjacent fluid collection probably a paraovarian cyst versus less likely developing abscess.
Probable uterine fibroid
Mild hepatosplenomegaly.
Hepatic fatty infiltration.
2 mm right middle lobe pulmonary nodule. This will be emailed to the [facility] pulmonary nodule advisory board
Abd US
IMPRESSION:
Hepatic steatosis with a 1.2 cm cyst adjacent to the gallbladder.
No sonographic evidence of acute cholecystitis or choledocholithiasis.
Pelvic/TVUS
IMPRESSION:
1. Thickened endometrium for age. Differential includes endometrial hyperplasia, polyp and carcinoma. Further evaluation with dedicated hysterosonogram can be obtained if clinically indicated.
2. No fluid collection identified.
3. Nonvisualization of the left ovary.
CTAP
IMPRESSION:
1. Acute sigmoid diverticulitis. Associated approximately 3.5 cm air and fluid collection immediately adjacent to the uterus, most likely small diverticular abscess.
2. In addition to these findings, there is 6.9 cm superior left pelvic fluid collection as above. This shows somewhat lobulated margins, no well-defined enhancing rim, surrounding inflammatory stranding, and is immediately adjacent to left gonadal
vessels. Differential considerations include diverticular abscess and secondary infection of another cystic structure such as lymphocele or paraovarian cyst.
3. Hepatomegaly and splenomegaly. Hepatic fatty infiltration.
4. Unchanged 2 mm right middle lobe nodule as seen previously.
5. Probable uterine fibroid as seen previously.
Percutaneous Drainage
IMPRESSION: CT-guided drainage of left pelvic fluid collection as described.
Instructions: Diverticulitis
Referrals:
Kendra Negron DO [Active] - in one to two weeks (For endometrial thickening )
Julian Mccormick DO [Family Provider] -
Juan Bartholomew MD [Active] - in two to three weeks
Abeba Salinas DO [Active] - (Return to GI office if liver function does not normalize call [phone] )
Myah Chapa MD [Active] - in two to four weeks
Prescriptions:
New
amoxicillin-pot clavulanate 875-125 mg Tablet
1 tab PO Q12 13 Days Qty: 26 0RF
Januvia 100 mg Tablet
100 mg PO DAILY 30 Days Qty: 30 0RF
(DME) Accu-Chek Guide test strips Strip
Qty: 200 0RF
Rx Instructions:
As Directed
(DME) lancets [Accu-Chek Softclix Lancets] Misc
Qty: 200 0RF
Rx Instructions:
As Directed
insulin aspart U-100 [Novolog FlexPen U-100 Insulin] 100 unit/mL (3 mL) Insulin Pen
5 unit SC AC Qty: 5 0RF
insulin glargine [Lantus Solostar U-100 Insulin] 100 unit/mL (3 mL) Insulin Pen
14 unit SC HS Qty: 5 0RF
(DME) pen needle, diabetic [BD Ultra-Fine Samara Pen Needle] 32 gauge x 5/32' Needle
Qty: 200 0RF
Rx Instructions:
As Directed
(DME) blood-glucose meter [Accu-Chek Guide Glucose Meter] Misc
Qty: 1 0RF
Rx Instructions:
As Directed
Continued
cetirizine [Zyrtec] 10 mg Tablet
10 mg PO DAILY
cyanocobalamin (vitamin B-12) 1,000 mcg Tablet
1,000 mcg PO DAILY
zinc sulfate 50 mg zinc (220 mg) Tablet
50 mg PO DAILY
famotidine [Pepcid] 20 mg Tablet
20 mg PO DAILY
ibuprofen [Advil] 200 mg Tablet
600 mg PO Q6HPRN PRN (Reason: mild pain)
albuterol sulfate 90 mcg/actuation Hfa Aerosol Inhaler
2 puff INHALATION R Q4HPRN PRN (Reason: sob)
esomeprazole magnesium [Nexium] 20 mg Capsule,Delayed Release(Dr/Ec)
20 mg PO DAILY
cholecalciferol (vitamin D3) [Vitamin D3] 25 mcg (1,000 unit) Tablet
25 mcg PO DAILY
magnesium oxide 400 mg magnesium Tablet
400 mg PO DAILY
Discharge Orders:
Discharge Patient (As Directed); Ordered 05/20/24
Ordered By: Jose Carlos Veras
Discharge Date and Time
Print Language: SYRIAC
[2024-05-20 17:00] VITALS: BP 158/85
[2024-05-20 17:13] LABS: Glucose - Point of Care 146 mg/dl (70-99)
[2024-05-20] MEDS: NOVOLOG FLEXPEN-LOW RESISTANCE SC (17:24)
[2024-05-20] MEDS: NOVOLOG FLEXPEN 5 UNITS SC (17:40)
[2024-05-20] MEDS: LOVENOX SC (17:48)
== END 2024-05-20 19:28 | disposition home or self-care (01) | DRG 872 ==
LOC: 3 WEST ACU 21:02
PROVIDERS: Emergency Medicine; Internal Medicine; Physician Assistant Medical; Radiology Vascular & Interventional Radiology; Registered Nurse; ADMITTING PHYSICIAN Hospitalist; ATTENDING PHYSICIAN Hospitalist; CONSULT PHYSICIAN Internal Medicine; EMERGENCY PHYSICIAN Emergency Medicine; FAMILY PHYSICIAN Student in an Organized Health Care Education/Training Program; OTHER PHYSICIAN Student in an Organized Health Care Education/Training Program; OTHER PHYSICIAN Surgery
PROC: 0W9J30Z Drainage of Pelvic Cavity with Drainage Device, Percutaneous Approach (ICD-10-PCS; 2024-05-19)
DX: A41.9 Sepsis, unspecified organism (principal); K57.20 Diverticulitis of large intestine with perforation and abscess without bleeding; J45.909 Unspecified asthma, uncomplicated; K21.9 Gastro-esophageal reflux disease without esophagitis; Z87.11 Personal history of peptic ulcer disease; K58.8 Other irritable bowel syndrome; E11.65 Type 2 diabetes mellitus with hyperglycemia; R93.89 Abnormal findings on diagnostic imaging of other specified body structures; R16.2 Hepatomegaly with splenomegaly, not elsewhere classified; D25.9 Leiomyoma of uterus, unspecified; K76.0 Fatty (change of) liver, not elsewhere classified; R91.1 Solitary pulmonary nodule; Z79.899 Other long term (current) drug therapy; E66.01 Morbid (severe) obesity due to excess calories; Z68.39 Body mass index [BMI] 39.0-39.9, adult; Z87.442 Personal history of urinary calculi; Z87.891 Personal history of nicotine dependence; N83.8 Other noninflammatory disorders of ovary, fallopian tube and broad ligament
CPT/HCPCS: 88305; 49406; 74177; 76700; 76830; 76856; 80053; 82248; 82962; 83036; 83735; 84100; 85025; 85027; 85610; 87070; 87071; 87075; 87186; 87205; 87324; 87449; 88112; 93005; 96365; 96375; 99152; 99153; 99285; Q9967

== ENCOUNTER → 2024-06-10 16:54 | Outpatient (REF) | payer BC, SELFPAY | LOC: RAD 16:54 | PROVIDERS: ATTENDING PHYSICIAN Surgery | DX: K57.32 Diverticulitis of large intestine without perforation or abscess without bleeding (principal) | CPT/HCPCS: 74177; Q9967 ==